=== PATIENT | female | born 1965 | race African-American/Black ===

== ENCOUNTER 2016-11-05 13:58 | Emergency (ER) | payer MEDICARE, MEDICAID ==
[~2016-11-05] VITALS: Ht 160 cm; Wt 81.6 kg
[~2016-11-05 13:58] MED LIST: BENA20TA2 PO; POTA20TA83 PO
[2016-11-05 14:55] LABS: BASOPHILS % (AUTO) 0.5 % (0.0-2.0); DIFF TOTAL % 100 %; EOSINOPHILS # (AUTO) 0.1 /CMM (0.0-0.7); EOSINOPHILS % (AUTO) 1.1 % (0.0-6.0); HEMATOCRIT 38 % (33-45); HEMOGLOBIN 12.3 g/dL (11.5-14.8); LYMPHOCYTES # (AUTO) 1.6 /CMM (0.8-4.8); MEAN CORPUSCULAR HEMOGLOBIN 27 PG (26.0-33.0); MEAN CORPUSCULAR HGB CONC 33 g/dl (31.0-36.0); MEAN CORPUSCULAR VOLUME 84 fL (82-100); MONOCYTES # (AUTO) 0.3 /CMM (0.1-1.30); MONOCYTES % (AUTO) 4.6 % (2.0-12.0); NEUTROPHILS # (AUTO) 4.7 /CMM (1.8-8.9); NEUTROPHILS % (AUTO) 69.8 % (43.0-81.0); PLATELET COUNT (AUTO) 267 /CMM (150-450); RED BLOOD CELL COUNT(AUTO) 4.51 MIL/uL (4.0-5.2); WHITE BLOOD COUNT (AUTO) 6.8 K/uL (4.3-11.0)
[2016-11-05] MEDS ORDERED: HYDROCODONE/APAP 5/325MG 1 EACH TABLET ONE (14:57)
[2016-11-05] MEDS ORDERED: HYDROCODONE/APAP 5/325MG 1 EACH TABLET PO ONE (15:00)
[2016-11-05 15:07] LABS: CALCIUM, SERUM 8.6 mg/dL (8.5-10.1); CREATININE 0.7 mg/dL (0.6-1.3); POTASSIUM 3.9 mmol/L (3.5-5.1)
[2016-11-05 15:12] LABS: ALBUMIN 3.9 g/dL (3.4-5.0); BILIRUBIN,TOTAL 0.3 mg/dL (0.2-1.0); TOTAL PROTEIN, SERUM 7.7 g/dL (6.4-8.2)
[2016-11-05 15:52] LABS: INR 1.05 (0.87-1.13)
[2016-11-05 16:43] VITALS: BP 142/92
== END 2016-11-05 16:50 | disposition home or self-care (01) ==
LOC: ER 15:10
DX: S70.11XA Contusion of right thigh, initial encounter (principal); M25.561 Pain in right knee; I51.7 Cardiomegaly; I10 Essential (primary) hypertension; M54.5 Low back pain; G89.29 Other chronic pain; E78.00 Pure hypercholesterolemia, unspecified; F31.9 Bipolar disorder, unspecified; F17.200 Nicotine dependence, unspecified, uncomplicated; Z90.89 Acquired absence of other organs; X58.XXXA Exposure to other specified factors, initial encounter; Y93.9 Activity, unspecified; Y92.9 Unspecified place or not applicable; Y99.9 Unspecified external cause status
CPT/HCPCS: 36415; 71010; 73564; 80053; 85025; 85730; 99285; A4606; Z7610

== ENCOUNTER 2017-03-31 10:17 | Emergency (ER) | payer MEDICAID, MEDICARE ==
[~2017-03-31] VITALS: Ht 165.1 cm; Wt 81.6 kg
--- NOTE | 2017-03-31 10:30 | NUR ---
PRESENTS SELF TO ED DT LEFT LOWER ABDOMINAL PAIN, 6/10, SHARP, RADIATING TO LEFT SIDE. DENIES NAUSEA AND VOMITTING, PATIENT IS AFEBRILE. VSS
[2017-03-31] MEDS ORDERED: ONDANSETRON HCL/PF 4 MG/2 ML VIAL ONE (10:57)
[2017-03-31] MEDS ORDERED: MORPHINE SULFATE INJ 4 MG/ML DISP.SYRIN ONE (10:57)
[2017-03-31] MEDS ORDERED: IV NS 0.9% 1,000 ML ONE (10:57)
[2017-03-31] MEDS ORDERED: IV SET PRIMARY 1 EA INFUS.SET MC ONE (10:57)
[2017-03-31] MEDS ORDERED: ONDANSETRON HCL/PF 4 MG/2 ML VIAL IVP ONE (11:00)
[2017-03-31] MEDS ORDERED: IV NS 0.9% 1,000 ML BAG IV ONE (11:00)
[2017-03-31] MEDS ORDERED: MORPHINE SULFATE INJ 2 MG/ML DISP.SYRIN IV ONE (11:00)
[2017-03-31 11:06] LABS: APPEARANCE,URINE Cloudy (CLEAR); BILIRUBIN,URINE SMALL (NEGATIVE); BLOOD, URINE Moderate Ery/uL (NEGATIVE); COLOR,URINE Dark (YELLOW); KETONES,URINE Negative (NEGATIVE); LEUKOCYTE ESTERASE ,URINE Negative (NEGATIVE); NITRITE, URINE Negative (NEGATIVE); PH,URINE 5.5 (5.0-8.0); PROTEIN,URINE 100 mg/dl (NEGATIVE); UGLUCOSE Negative (NEGATIVE); UROBILINOGEN,URINE 0.2 EU/dL (0.2)
[2017-03-31] MEDS ORDERED: ASPI81TA2 PO (11:06)
[2017-03-31 11:10] LABS: BASOPHILS % (AUTO) 0.5 % (0.0-2.0); EOSINOPHILS # (AUTO) 0.1 /CMM (0.0-0.7); EOSINOPHILS % (AUTO) 0.8 % (0.0-6.0); HEMATOCRIT 38 % (33-45); HEMOGLOBIN 12.3 g/dL (11.5-14.8); LYMPHOCYTES # (AUTO) 1.4 /CMM (0.8-4.8); LYMPHOCYTES % (AUTO) 18.1 % (20.0-44.0); MEAN CORPUSCULAR HEMOGLOBIN 28 PG (26.0-33.0); MEAN CORPUSCULAR HGB CONC 33 g/dl (31.0-36.0); MEAN CORPUSCULAR VOLUME 87 fL (82-100); MONOCYTES # (AUTO) 0.4 /CMM (0.1-1.30); MONOCYTES % (AUTO) 5.5 % (2.0-12.0); NEUTROPHILS % (AUTO) 75.1 % (43.0-81.0); PLATELET COUNT (AUTO) 257 /CMM (150-450); RDW COEFFICIENT OF VARIATION 17.4 (11.5-15.0); RED BLOOD CELL COUNT(AUTO) 4.35 MIL/uL (4.0-5.2); WHITE BLOOD COUNT (AUTO) 7.9 K/uL (4.3-11.0)
[2017-03-31 11:26] LABS: RBC,URINE 21-50 /HPF (0-2); SQUAMOUS EPITHELIAL CELL,UR Many /HPF (None Seen)
[2017-03-31 11:27] LABS: BACTERIA,URINE Moderate /HPF (None Seen)
[2017-03-31 12:01] LABS: ALBUMIN 3.7 g/dL (3.4-5.0); BILIRUBIN,DIRECT 0.1 mg/dL (0.0-0.2); BILIRUBIN,TOTAL 0.2 mg/dL (0.2-1.0); CALCIUM, SERUM 8.4 mg/dL (8.5-10.1); CREATININE 0.7 mg/dL (0.6-1.3); POTASSIUM 3.6 mmol/L (3.5-5.1); TOTAL PROTEIN, SERUM 7.1 g/dL (6.4-8.2)
[2017-03-31] MEDS ORDERED: CT SWABBABLE VALVE TRANS SET 1 EA INFUS.SET MC ONE (12:07)
[2017-03-31] MEDS ORDERED: IV NS 0.9% 250 ML IV ONE (12:07)
[2017-03-31] MEDS ORDERED: IOHEXOL-300 100 ML VIAL IV ONE (12:07)
--- NOTE | 2017-03-31 12:12 | NUR ---
PT WAS TAKEN TO CT
--- NOTE | 2017-03-31 12:27 | NUR ---
PT IS BACK FROM CT
--- NOTE | 2017-03-31 13:44 | NUR ---
Patient discharged to home in stable condition. Written and verbal after care instructions given. Patient verbalizes understanding of instruction.
[2017-03-31 13:45] VITALS: BP 157/98
== END 2017-03-31 13:46 | disposition home or self-care (01) ==
LOC: ER 10:19
DX: N20.0 Calculus of kidney (principal); E78.00 Pure hypercholesterolemia, unspecified; R19.7 Diarrhea, unspecified; F31.9 Bipolar disorder, unspecified; I10 Essential (primary) hypertension; G89.29 Other chronic pain; F20.9 Schizophrenia, unspecified; M54.5 Low back pain; F17.200 Nicotine dependence, unspecified, uncomplicated; Z90.89 Acquired absence of other organs; Z79.82 Long term (current) use of aspirin
CPT/HCPCS: 36415; 74160; 80048; 80076; 81001; 83690; 85025; 87086; 96361; 96374; 96375; 99285; A4606; J2270; J2405; J7030; J7050; Q9967; 81000-TC; Z7610

== ENCOUNTER 2017-06-01 22:50 | Emergency (ER) | payer OTHER ==
[~2017-06-01] VITALS: Ht 172.7 cm; Wt 79.8 kg
[~2017-06-01 22:50] MED LIST changes: +AMLO10TA2 PO; +ASPI81TA2 PO; +FURO-144 PO; -POTA20TA83 PO; +POTA8TAB8 PO; +TRAM50TA2 PO
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
[2017-06-01] MEDS ORDERED: ROCURONIUM BROMIDE 50 MG/5 ML IV ONE (22:52)
[2017-06-01] MEDS ORDERED: ETOMIDATE 2 MG/ML VIAL IV ONE ×2 (22:52→23:30)
[2017-06-01] MEDS ORDERED: NALOXONE PREFILLED SYRINGE 2 MG/2 ML SYRINGE ONE ×3 (22:55→22:58)
[2017-06-01] MEDS ORDERED: ROCURONIUM BROMIDE 50 MG/5 ML ONE (23:03)
--- NOTE | 2017-06-01 23:06 | NUR ---
PER DR FISCHER, PT INTUBATED 22 CM AT THE LIP 7.5 ET TUBE. RT AT BEDSIDE
[2017-06-01] MEDS ORDERED: PROPOFOL 100 ML IV ONE ×2 (23:07→23:30)
[2017-06-01 23:15] VITALS: BP 131/95
--- NOTE | 2017-06-01 23:15 | NUR ---
VENT SETTINGS: AC 18 TV 450 FI02 40% PEEP 5, 7.5 ET TUBE, 22CM AT THE LIP
--- NOTE | 2017-06-01 23:24 | NUR ---
16FR F/C PLACED, PT TOLERATED WELL. URINE COLLECTED. CALLED LAB FOR RELATIONSHIP MANAGEMENT LEAD.
--- NOTE | 2017-06-01 23:25 | NUR ---
LAB AT BEDSIDE FOR BLOOD/BLOOD CX DRAW
--- NOTE | 2017-06-01 23:26 | NUR ---
RADIOLOGY AT BEDSIDE FOR CXR
[2017-06-01] MEDS ORDERED: ROCURONIUM BROMIDE 100 MG/10 ML VIAL IV ONE (23:30)
[2017-06-01] MEDS ORDERED: NALOXONE HCL 0.4 MG/ML AMPUL IV ONE (23:30)
--- NOTE | 2017-06-01 23:49 | NUR ---
PT RETURNED FROM CT.
[2017-06-01 23:52] LABS: BASOPHILS % (AUTO) 0.7 % (0.0-2.0); EOSINOPHILS # (AUTO) 0.2 /CMM (0.0-0.7); EOSINOPHILS % (AUTO) 2.8 % (0.0-6.0); HEMATOCRIT 34 % (33-45); HEMOGLOBIN 10.9 g/dL (11.5-14.8); LYMPHOCYTES # (AUTO) 2.1 /CMM (0.8-4.8); LYMPHOCYTES % (AUTO) 33.9 % (20.0-44.0); MEAN CORPUSCULAR HEMOGLOBIN 29 PG (26.0-33.0); MEAN CORPUSCULAR HGB CONC 32 g/dl (31.0-36.0); MEAN CORPUSCULAR VOLUME 90 fL (82-100); MONOCYTES # (AUTO) 0.4 /CMM (0.1-1.30); MONOCYTES % (AUTO) 6.4 % (2.0-12.0); NEUTROPHILS # (AUTO) 3.5 /CMM (1.8-8.9); NEUTROPHILS % (AUTO) 56.2 % (43.0-81.0); PLATELET COUNT (AUTO) 261 /CMM (150-450); RDW COEFFICIENT OF VARIATION 15.7 (11.5-15.0); WHITE BLOOD COUNT (AUTO) 6.2 K/uL (4.3-11.0)
[2017-06-01 23:55] LABS: APPEARANCE,URINE SL CLOUDY (CLEAR); BILIRUBIN,URINE 1+ (NEGATIVE); BLOOD, URINE 1+ Ery/uL (NEGATIVE); COLOR,URINE YELLOW (YELLOW); KETONES,URINE TRACE (NEGATIVE); LEUKOCYTE ESTERASE ,URINE 1+ (NEGATIVE); NITRITE, URINE POSITIVE (NEGATIVE); PH,URINE 6.5 (5.0-8.0); PROTEIN,URINE 1+ mg/dl (NEGATIVE); UGLUCOSE NEGATIVE (NEGATIVE); UROBILINOGEN,URINE 0.2 EU/dL (0.2)
[2017-06-02] VITALS (26 sets, daily range): BP systolic 85–161; BP diastolic 49–109
[2017-06-02] LABS: PREGNANCY TEST URINE QUAL NEGATIVE (NEGATIVE)
[2017-06-02 00:02] LABS: SERUM AMMONIA 59 umol/L (11-32)
[2017-06-02 00:04] LABS: CALCIUM, SERUM 8.3 mg/dL (8.5-10.1); CARBON DIOXIDE 25 mmol/L (21-32); CHLORIDE 109 mmol/L (98-107); CREATININE 0.8 mg/dL (0.6-1.3); GLUCOSE 141 mg/dL (74-106); SODIUM SERUM 147 mmol/L (136-145); UREA NITROGEN, BLOOD 16 mg/dL (7-18)
[2017-06-02 00:06] LABS: BACTERIA,URINE 3+ /HPF (None Seen); CREATINE KINASE, TOTAL 105 U/L (26-192); MUCUS,URINE Moderate /LPF (None Seen); SQUAMOUS EPITHELIAL CELL,UR Moderate /HPF (None Seen); URINE AMORPHOUS URATE Few /HPF (None Seen); WBC,URINE 21-50 /HPF (0-3)
[2017-06-02 00:06] LABS: ABG BASE EXCESS -2.4 mmol/L; ABG OXYGEN SATURATION 84.9 % (92.0-98.5); ABG PCO2 48.7 mmHg (35.0-45.0); ABG PH 7.312 (7.350-7.450); ABG PO2 59.5 mmHg (75.0-100.0); COHb 2.5 % (0.5-1.5); MetHb 0.6 % (0.0-1.5); O2Hb 82.3 % (94.0-97.0); PEEP,BG 5 cm H2O; VT, ABG 450 mL
--- NOTE | 2017-06-02 00:10 | NUR ---
OGT PLACED PER MD ORDER, VERIFIED BY 2ND RN RILEY, NOTED GASTRIC CONTENT
--- NOTE | 2017-06-02 00:13 | NUR ---
PER RT, VENT AC CHANGED TO 20 PER MD ORDER
[2017-06-02 00:15] LABS: ALANINE AMINOTRANSFERASE 26 U/L (12-78); ALBUMIN 3.3 g/dL (3.4-5.0); ALCOHOL, BLOOD 176 mg/dL (0-0); ALKALINE PHOSPHATASE 61 U/L (46-116); ASPARTATE AMINOTRANSFERASE 20 U/L (15-37); BILIRUBIN,TOTAL 0.1 mg/dL (0.2-1.0); SALICYLATE 5.1 mg/dL (2.8-20.0); TOTAL PROTEIN, SERUM 6.9 g/dL (6.4-8.2)
[2017-06-02 00:16] LABS: ACETAMINOPHEN 0 ug/ml (10-30)
--- NOTE | 2017-06-02 00:16 | NUR ---
ASSIGNED ICU BED 251
[2017-06-02] MEDS ORDERED: IV NS 0.9% 1,000 ML BAG IV ONE ×2 (00:30→01:00)
[2017-06-02] MEDS ORDERED: Magnesium 1 GM/2 ML VIAL IV ONE (00:30)
[2017-06-02] MEDS ORDERED: CEFTRIAXONE 1GM BAG (ER ONLY) 1 GM/50 ML PIGGYBACK IV ONE (00:30)
[2017-06-02] MEDS ORDERED: Magnesium 1GM/D5W 100ML PREMIX 200 ML IV ONE (00:32)
[2017-06-02] MEDS ORDERED: CEFTRIAXONE 1GM BAG (ER ONLY) 50 ML IV ONE (00:32)
--- NOTE | 2017-06-02 00:41 | NUR ---
PER RT, ET TUBE READJUSTED TO 25CM AT THE LIP. RADIOLOGY AT BEDSIDE FOR CXR
[2017-06-02 00:52] LABS: TROPONIN I < 0.017 ng/mL (0.00-0.056)
--- NOTE | 2017-06-02 01:03 | NUR ---
REPORT GIVEN TO SIMRAN BLEVINS FOR ICU BED 251 FOR SHRUTI
[2017-06-02 01:08] LABS: INR 0.97 (0.87-1.13); PROTHROMBIN TIME 10.4 SECS (9.5-12.7)
--- NOTE | 2017-06-02 01:48 | NUR ---
PT TRASNFERED PER ACLS PROTOCOL TO ICU 251
[2017-06-02] MEDS ORDERED: Z GUARD REMEDY 2 OZ OINT TP PRN (02:00)
[2017-06-02] MEDS ORDERED: ENOXAPARIN SODIUM 40 MG/0.4 ML DISP.SYRIN SQ SCH ×2 (02:00→21:00)
[2017-06-02] MEDS ORDERED: ONDANSETRON HCL/PF 4 MG/2 ML VIAL IVP PRN (02:00)
[2017-06-02] MEDS ORDERED: ACETAMINOPHEN 650 MG/SUPP.RECT RC PRN (02:00)
[2017-06-02] MEDS ORDERED: CEFTRIAXONE 2 G in IV D5W 100 ML IV SCH (02:00)
[2017-06-02] MEDS: POTASSIUM CL. PREMIX PERIPHER. 50 ML IV SCH ×4 (02:10→04:53)
[2017-06-02] MEDS ORDERED: ENOXAPARIN SODIUM 40 MG/0.4 ML DISP.SYRIN SQ ONE (02:16)
[2017-06-02] MEDS ORDERED: PROPOFOL 100 ML IV ONE ×2 (02:16→06:02)
[2017-06-02] MEDS: IV D5/0.45 NACL 1,000 ML IV PRN ×2 (02:19→09:19)
--- NOTE | 2017-06-02 03:18 | NUR ---
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 RECEIVED THE PT FROM ER VIA [facility]. ORALLY INTUBATED. SEDATED WITH DIPRIVAN. ETT 7.5CM,AC 20, LIP 25,TV 450, FIO2 40%, PEEP 5. SAT 98%. NO ACUTE DISTRESS NOTED. COTTON BALL MACHINE TENDER SHOWING NSR. IV LT HAND 20G, EJ 20G. IVF NS 1L BOLUS RUNNING, BHAVIK SOFT WRIST RESTRAINT CHECKED AND RELEASED. NO INJURY OR REDNESS NOTED.FC PATENT. OGT INTACT. WILL CONTINUE TO MONITOR VITALS.
[2017-06-02] MEDS: PROPOFOL 100 ML IV PRN ×2 (03:23→06:20)
[2017-06-02 04:46] LABS: BASOPHILS % (AUTO) 0.3 % (0.0-2.0); EOSINOPHILS # (AUTO) 0.1 /CMM (0.0-0.7); EOSINOPHILS % (AUTO) 1.1 % (0.0-6.0); HEMATOCRIT 31 % (33-45); HEMOGLOBIN 10.2 g/dL (11.5-14.8); LYMPHOCYTES # (AUTO) 1.7 /CMM (0.8-4.8); MEAN CORPUSCULAR HEMOGLOBIN 30 PG (26.0-33.0); MEAN CORPUSCULAR HGB CONC 33 g/dl (31.0-36.0); MEAN CORPUSCULAR VOLUME 90 fL (82-100); MONOCYTES # (AUTO) 0.3 /CMM (0.1-1.30); NEUTROPHILS # (AUTO) 4.6 /CMM (1.8-8.9); NEUTROPHILS % (AUTO) 68.6 % (43.0-81.0); PLATELET COUNT (AUTO) 236 /CMM (150-450); RDW COEFFICIENT OF VARIATION 15.9 (11.5-15.0); RED BLOOD CELL COUNT(AUTO) 3.47 MIL/uL (4.0-5.2); WHITE BLOOD COUNT (AUTO) 6.7 K/uL (4.3-11.0)
[2017-06-02 04:58] LABS: CALCIUM, SERUM 7.8 mg/dL (8.5-10.1); CREATININE 0.7 mg/dL (0.6-1.3); MAGNESIUM 2.2 mg/dL (1.8-2.4); PHOSPHORUS 3.2 mg/dL (2.5-4.9); POTASSIUM 3.7 mmol/L (3.5-5.1)
--- NOTE | 2017-06-02 05:11 | NUR ---
HAT LINER. AM CARE. ORAL CARE. BED BATH GIVEN. LINEN CHANGED. REMAINING SAME VENT SETTING TOLERATED WELL. SAT 98%. NO ACUTE DISTRESS NOTED. INSTALLATION MANAGER SHOWING NSR. IV RLT HAND 20G, LT EJ 20G. IVF D5 1/2NS 75ML/H, DIPRIVAN 50MCG/KG/MIN. HOB ELEVATED. NPO. OGT INTACT. CLAMPED. FC PATENT. BHAVIK SOFT WRIST RESTRAINT CHECKED AND RELEASED. NO INJURY OR REDNESS NOTED. HOB EKEVATED, TURN AND REPOSITION Q2H. WILL CONTINUE TO MONITOR VITALS.
--- NOTE | 2017-06-02 07:10 | NUR ---
ICU INITIAL NOTE RECEIVED PT A/O X4, ABLE TO MAKE NEEDS KNOWN, ABLE TO FOLLOW COMMANDS, PT IS ON MECH VENT ETT 7.5 @25 LIPLINE, AC 20 TV 450 FIO2 40% PEEP 5,SATING WELL, BREATHING IS UNLABORED AND EVEN, OGT, CLAMPED, FLUSHING WELL, PT IS ON BEDSIDE MONITOR SHOWING SR @ 85 BPM, NO C/O OF CHEST PAIN OR DISCOMFORT AT THIS TIME, PT HAS LAC #20G,SL, C/D/I/PATENT, FLUSHING WELL,LEJ #20G,RUNNING D5 1/2 NS@ 75ML/HR, DIPRIVAN @ 50 MCG/MIN , C/D/I/ PATENT, FLUSHING WELL, NO S/S OF INFECTION/ INFILTRATION NOTED AT THIS TIME, PT IS NOTED WITH BILATERAL WRIST RESTRAINTS, SKIN CHECK COMPLETED AND RELEASED, PT HAS F/C INTACT/PATENT, ALL NEEDS MET AT THIS TIME, ALL SAFETY MEASURES IN PLACE AT ALL TIMES, CALL LIGHT WITHIN EASY REACH, WILL MONITOR PT CLOSELY FOR CHANGES
[2017-06-02 07:57] LABS: ABG BASE EXCESS -4.6 mmol/L; ABG OXYGEN SATURATION 97.2 % (92.0-98.5); ABG PCO2 34.7 mmHg (35.0-45.0); ABG PH 7.376 (7.350-7.450); ABG PO2 108.5 mmHg (75.0-100.0); AaDO2 136.8 mmHg; COHb 0.4 % (0.5-1.5); MetHb 0.7 % (0.0-1.5); O2Hb 96.1 % (94.0-97.0); PEEP,BG 5 cm H2O; SITE, ABG Right Radial; VENT MODE, BG AC 20 450 40% +5; VT, ABG 450 mL
[2017-06-02] MEDS ORDERED: DC PROPOFOL WHEN EXTUBATED XX PRN (08:00)
--- NOTE | 2017-06-02 09:00 | NUR ---
SEDATION VACATION DIPRIVAN WAS TURNED OFF, PT IS ABLE TO FOLLOW COMMANDS, ABLE TO MAKE ALL EXTREMITIES, ABLE TO MAKE NEEDS KNOWN, DIPRIVAN STILL ON HOLD, PT IS BEING WEANED. WILL MONITOR CLOSELY
--- NOTE | 2017-06-02 10:00 | NUR ---
ICU NOTE DR. VALENTINO ORDERED EXTUBATION, PT WAS EXTUBATED, PLACED ON 2L NC, TOLERATING WELL, ABLE TO SPEAK, EAT ICE CHIPS, WILL MONITOR CLOSELY
--- NOTE | 2017-06-02 11:00 | NUR ---
ICU NOTE PT REFUSING TO USE BEDSIDE COMMODE, PT WAS EDUCATED WITH THE RISK OF WALKING TO THE RESTROOM, PT STILL REFUSES TO USE BEDSIDE COMMODE AND WANTS TO USE RESTROOM. Addendum: 06/02/17 at 1259 by LYNN ANDRADE RN ADDED: PT VERBALIZES UNDERSTANDING AND RISK
--- NOTE | 2017-06-02 11:21 | NUR ---
RT NOTE PT EXTUBATED PER MD ORDER. PT AWAKE AND ALERT. AMBU BAG AT BED SIDE. PT PLACED ON NC AT 2L. SPO2 99%. PELEG AT BED SIDE. NO DISTRESS NOTED. WILL CONTINUE TO MONITOR. Addendum: 06/02/17 at 1123 by ROSEANN CHAPMAN RT Amended: Links added.
[2017-06-02] MEDS ORDERED: ACETAMINOPHEN 325 MG TABLET PO PRN (11:30)
[2017-06-02] MEDS ORDERED: NICOTINE PATCH (14MG) 14 MG PATCH.TD24 TD SCH (12:00)
--- NOTE | 2017-06-02 16:00 | NUR ---
ICU NOTE PT REQUESTED REJ TO BE REMOVED, PAINFUL FOR THE PT, INFORMED HER WE WOULD NEED A NEW IV, PT REFUSED X3, EXPLAINED RISKS AND BENEFITS, PT STILL REFUSED
[2017-06-02] MEDS ORDERED: NIFE60TA69 PO (20:56)
== END 2017-06-02 01:50 | disposition other institution (70) ==
LOC: ER 22:51 → MERGE 22:51 → UNDOADMIN 06-02 00:49 → ICU 06-02 00:49
DX: J96.90 Respiratory failure, unspecified, unspecified whether with hypoxia or hypercapnia (principal); R41.82 Altered mental status, unspecified; F19.10 Other psychoactive substance abuse, uncomplicated; E86.0 Dehydration; D64.9 Anemia, unspecified; Z88.6 Allergy status to analgesic agent; Z88.8 Allergy status to other drugs, medicaments and biological substances; Z91.040 Latex allergy status
CPT/HCPCS: 31720; 36415 ×2; 36600 ×3; 51702; 70450; 71010 ×2; 80048 ×2; 80076; 80305; 80329; 81001; 82140; 82550; 82803; 82962; 83735; 84100; 84484 ×3; 84703; 85025 ×2; 85730; 87081; 87086; 93005; 93307; 94002; 94799; 99285; A4606 ×2; G0480 ×2; J0696 ×3; J1650; J2310 ×3; J3475; J3490 ×7; J7030 ×2; J7060 ×2; 81000-TC; Z7610

== ENCOUNTER 2017-06-02 19:11 | Inpatient (IN) | payer MEDICARE, MEDICAID ==
[~2017-06-02] VITALS: Ht 142.2 cm; Wt 100.7 kg
[2017-06-02 20:00] VITALS: BP_SYST 140; BP_SYST 160; BP_DIAS 100; BP_DIAS 140
--- NOTE | 2017-06-02 20:00 | NUR ---
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 PT ADMITTED IN THE ICU ON 06/02/17T 0140. ROOM 251. RECEIVED THE PT FROM ER VIA [facility]. ORALLY INTUBATED, SEDATED WITH DIPRIVAN. IV WSA RT [id number] LT HAND 20G. IVF NS BOLUS RUNNING, ETT 7.7, SETTINGS LIP 25CMS, AC 20, TV 450,FIO2 40%, PEEP 5. SAT 98%. NO ACCUTE DISTRESS NOTED. FLATWORK IRONER SHOWING NSR. FC PATENT. PT EXTUBATED 06/02/17. AT 1000. THIS PT ADMITTED HER SISTER {CHANDA AKBAR}SAME NAME AND MEDICAL RECORD NUMBER. I REPORTED DR HAL WangBEGINNING MY SHIFT 06/02/17 AT 1900. ADMITTING DISCHARGED HER SISTER NAME AND ADMITTED LIKE NEW PT . ,
[2017-06-02] MEDS ORDERED: NIFEdipine XL 60 MG TAB PO STA (20:53)
[2017-06-02] MEDS ORDERED: NIFE60TA69 PO (20:56)
[2017-06-02 21:00] VITALS: BP 144/120
[2017-06-02] MEDS ORDERED: NIFEdipine XL (30MG) 30 MG TAB PO ONE (21:11)
[2017-06-02 22:00] VITALS: BP 145/145
--- NOTE | 2017-06-02 22:10 | NUR ---
SUPERVISOR [employer]. RECEIVED THE PT AWAKE, ALERT, FOLLOW COMMANDS. SNOWBOARDER SHOWING NSR. IV LT HAND 20G. PT ON ROOM AIR. SAT 98%. NO ACUTE DISTRESS NOTED. WILL CONTINUE TO MONITOR VITALS.
--- NOTE | 2017-06-02 23:00 | NUR ---
MANAGER INTERNET. DR HONG AT BED SIDE, DISCHARGED THE PT. PT IS STABLE.
== END 2017-06-03 02:00 | disposition home or self-care (01) | DRG 917 ==
LOC: ICU 19:11
PROVIDERS: ADMIT Nurse Practitioner Acute Care; ATTEND Nurse Practitioner Acute Care
DX: T50.901A Poisoning by unspecified drugs, medicaments and biological substances, accidental (unintentional), initial encounter (principal); J96.00 Acute respiratory failure, unspecified whether with hypoxia or hypercapnia; N39.0 Urinary tract infection, site not specified; Y92.009 Unspecified place in unspecified non-institutional (private) residence as the place of occurrence of the external cause; F19.90 Other psychoactive substance use, unspecified, uncomplicated; E66.9 Obesity, unspecified; I10 Essential (primary) hypertension; N20.0 Calculus of kidney

== ENCOUNTER 2017-07-01 14:47 | Emergency (ER) | payer MEDICARE, MEDICAID ==
[~2017-07-01] VITALS: Ht 160 cm; Wt 79.4 kg
[~2017-07-01 14:47] MED LIST changes: -ASPI81TA2 PO; -BENA20TA2 PO; +NIFE60TA69 PO
--- NOTE | 2017-07-01 15:15 | NUR ---
RLQ ABD PAIN SINCE THIS AM
--- NOTE | 2017-07-01 16:00 | NUR ---
LAC #18 IV ACCESS. BLOOD SAMPLE COLLECTED SENT TO LAB. URINE SAMPLE COLLECTED
[2017-07-01 16:17] LABS: BASOPHILS % (AUTO) 0.1 % (0.0-2.0); EOSINOPHILS % (AUTO) 0.4 % (0.0-6.0); HEMATOCRIT 40 % (33-45); HEMOGLOBIN 12.9 g/dL (11.5-14.8); LYMPHOCYTES % (AUTO) 9.5 % (20.0-44.0); MEAN CORPUSCULAR HEMOGLOBIN 28 PG (26.0-33.0); MEAN CORPUSCULAR HGB CONC 32 g/dl (31.0-36.0); MEAN CORPUSCULAR VOLUME 86 fL (82-100); MONOCYTES # (AUTO) 0.2 /CMM (0.1-1.30); MONOCYTES % (AUTO) 2.4 % (2.0-12.0); NEUTROPHILS # (AUTO) 9.2 /CMM (1.8-8.9); NEUTROPHILS % (AUTO) 87.6 % (43.0-81.0); PLATELET COUNT (AUTO) 271 /CMM (150-450); RDW COEFFICIENT OF VARIATION 15.5 (11.5-15.0); RED BLOOD CELL COUNT(AUTO) 4.65 MIL/uL (4.0-5.2); WHITE BLOOD COUNT (AUTO) 10.4 K/uL (4.3-11.0)
[2017-07-01 16:19] LABS: APPEARANCE,URINE CLEAR (CLEAR); BILIRUBIN,URINE NEGATIVE (NEGATIVE); BLOOD, URINE 3+ Ery/uL (NEGATIVE); COLOR,URINE YELLOW (YELLOW); KETONES,URINE NEGATIVE (NEGATIVE); LEUKOCYTE ESTERASE ,URINE NEGATIVE (NEGATIVE); NITRITE, URINE NEGATIVE (NEGATIVE); PH,URINE 7.5 (5.0-8.0); PROTEIN,URINE TRACE mg/dl (NEGATIVE); UGLUCOSE NEGATIVE (NEGATIVE); UROBILINOGEN,URINE 0.2 EU/dL (0.2)
[2017-07-01 16:37] LABS: RBC,URINE 21-50 /HPF (0-2)
[2017-07-01 16:38] LABS: BACTERIA,URINE Rare /HPF (None Seen); SQUAMOUS EPITHELIAL CELL,UR 0-2 /HPF (None Seen)
[2017-07-01 16:52] LABS: CALCIUM, SERUM 8.9 mg/dL (8.5-10.1); CREATININE 0.6 mg/dL (0.6-1.3); POTASSIUM 3.8 mmol/L (3.5-5.1)
--- NOTE | 2017-07-01 17:02 | NUR ---
PT TAKENT TO CT
[2017-07-01 17:06] LABS: BILIRUBIN,TOTAL 0.2 mg/dL (0.2-1.0); TOTAL PROTEIN, SERUM 8.1 g/dL (6.4-8.2)
--- NOTE | 2017-07-01 18:32 | NUR ---
IV removed. Catheter intact and site benign. Pressure and 4x4 applied to site. No bleeding noted.
--- NOTE | 2017-07-01 18:32 | NUR ---
IV removed. Catheter intact and site benign. Pressure and 4x4 applied to site. No bleeding noted.
--- NOTE | 2017-07-01 18:32 | NUR ---
Patient discharged to home in stable condition. Written and verbal after care instructions given. Patient verbalizes understanding of instruction.
--- NOTE | 2017-07-01 18:32 | NUR ---
Patient discharged to home in stable condition. Written and verbal after care instructions given. Patient verbalizes understanding of instruction.
[2017-07-01 18:33] VITALS: BP 163/104
== END 2017-07-01 18:33 | disposition home or self-care (01) ==
LOC: ER 14:50
DX: K85.90 Acute pancreatitis without necrosis or infection, unspecified (principal); N20.0 Calculus of kidney; F17.200 Nicotine dependence, unspecified, uncomplicated; D25.9 Leiomyoma of uterus, unspecified; E78.00 Pure hypercholesterolemia, unspecified; G89.29 Other chronic pain; I10 Essential (primary) hypertension; K57.30 Diverticulosis of large intestine without perforation or abscess without bleeding; K59.00 Constipation, unspecified; K76.0 Fatty (change of) liver, not elsewhere classified; M51.37 Other intervertebral disc degeneration, lumbosacral region; Z87.891 Personal history of nicotine dependence
CPT/HCPCS: 36415; 74170-TC; 80048-TC; 80076-TC; 81000-TC; 83690-TC; 85025-TC; 87086-TC; A4606; J2270; J2405; J7030; J7050; Q9967; Z7610

== ENCOUNTER 2018-07-22 20:21 | Emergency (ER) | payer MEDICARE, MEDICAID ==
[~2018-07-22] VITALS: Ht 160 cm; Wt 83.9 kg
[~2018-07-22 20:21] MED LIST changes: -AMLO10TA2 PO; +AMLO10TA6 PO
[2018-07-22 20:46] VITALS: BP 156/103
--- NOTE | 2018-07-22 22:10 | NUR ---
PER ADMITTING PT LEFT.
== END 2018-07-22 22:13 | disposition left against medical advice (07) ==
LOC: ER 20:26
DX: I10 Essential (primary) hypertension (principal); Z53.21 Procedure and treatment not carried out due to patient leaving prior to being seen by health care provider; F31.9 Bipolar disorder, unspecified; G89.29 Other chronic pain; M54.5 Low back pain; E78.00 Pure hypercholesterolemia, unspecified; Z98.890 Other specified postprocedural states; Z90.89 Acquired absence of other organs
CPT/HCPCS: A4606; Z7610

== ENCOUNTER 2019-02-03 12:51 | Emergency (ER) | payer MEDICARE, MEDICAID ==
[~2019-02-03] VITALS: Ht 160 cm; Wt 74.8 kg
[~2019-02-03 12:51] MED LIST changes: -AMLO10TA6 PO; +AMLO10TA7 PO
--- NOTE | 2019-02-03 13:15 | NUR ---
BIB SPOUSE C/O LT SIDE "SHARP" PAIN, NON RADIATING, ON & OFF X 3 DAYS W/SOB & NAUSEA. ALSO C/O RT UPPER LIP & RT 5TH FINGER NUMBNESS X 3 MOS. TO ER BED 7, HOOKED TO MONITOR, CHANGED TO GOWN, PROVIDED W WARM BLANKET, AWAITING MD ROSENTHAL.
[2019-02-03 13:37] LABS: BASOPHILS # (AUTO) 0.1 /CMM (0.0-0.2); EOSINOPHILS % (AUTO) 1.2 % (0.0-6.0); HEMATOCRIT 42 % (33-45); HEMOGLOBIN 13.9 g/dL (11.5-14.8); LYMPHOCYTES # (AUTO) 1.9 /CMM (0.8-4.8); LYMPHOCYTES % (AUTO) 24.5 % (20.0-44.0); MEAN CORPUSCULAR HGB CONC 33 g/dl (31.0-36.0); MEAN CORPUSCULAR VOLUME 91 fL (82-100); MONOCYTES # (AUTO) 0.4 /CMM (0.1-1.30); MONOCYTES % (AUTO) 5.6 % (2.0-12.0); NEUTROPHILS # (AUTO) 5.1 /CMM (1.8-8.9); NEUTROPHILS % (AUTO) 67.7 % (43.0-81.0); PLATELET COUNT (AUTO) 305 /CMM (150-450); RED BLOOD CELL COUNT(AUTO) 4.59 MIL/uL (4.0-5.2); WHITE BLOOD COUNT (AUTO) 7.6 K/uL (4.3-11.0)
[2019-02-03 13:46] LABS: CALCIUM, SERUM 8.9 mg/dL (8.5-10.1); CARBON DIOXIDE 29 mmol/L (21-32); CHLORIDE 106 mmol/L (98-107); CREATININE 0.6 mg/dL (0.6-1.3); GLUCOSE 92 mg/dL (74-106); POTASSIUM 3.9 mmol/L (3.5-5.1); SODIUM SERUM 145 mmol/L (136-145); UREA NITROGEN, BLOOD 22 mg/dL (7-18)
--- NOTE | 2019-02-03 14:32 | NUR ---
PT. VERBALIZED UNDERSTANDING OF AFTERCARE INSTRUCTIONS.Patient discharged to home in stable condition. Written and verbal after care instructions given. Patient verbalizes understanding of instruction.
[2019-02-03 14:43] VITALS: BP 147/94
== END 2019-02-03 14:43 | disposition home or self-care (01) ==
LOC: ER 12:51
DX: R07.89 Other chest pain (principal); I10 Essential (primary) hypertension; G89.29 Other chronic pain; M54.5 Low back pain; E78.00 Pure hypercholesterolemia, unspecified; F31.9 Bipolar disorder, unspecified; F10.10 Alcohol abuse, uncomplicated; F17.200 Nicotine dependence, unspecified, uncomplicated; Y90.9 Presence of alcohol in blood, level not specified; Z88.6 Allergy status to analgesic agent; Z91.040 Latex allergy status; Z88.5 Allergy status to narcotic agent; Z86.73 Personal history of transient ischemic attack (TIA), and cerebral infarction without residual deficits
CPT/HCPCS: 36415; 71045-TC; 80048-TC; 84484-TC; 85025-TC

== ENCOUNTER 2019-04-13 23:26 | Emergency (ER) | payer MEDICARE, MEDICAID ==
[~2019-04-13] VITALS: Ht 162.6 cm; Wt 83.5 kg
[2019-04-14] MEDS ORDERED: ONDANSETRON HCL/PF 4 MG/2 ML VIAL ONE (00:51)
[2019-04-14] MEDS ORDERED: PANTOPRAZOLE 40 MG VIAL ONE (00:51)
[2019-04-14] MEDS ORDERED: IV NS 0.9% 1,000 ML BAG IV ONE (01:00)
[2019-04-14] MEDS ORDERED: ONDANSETRON HCL/PF 4 MG/2 ML VIAL IVP ONE (01:00)
[2019-04-14] MEDS ORDERED: PANTOPRAZOLE 40 MG VIAL IV ONE (01:00)
--- NOTE | 2019-04-14 01:18 | NUR ---
PT STATING "HAVING ABD PAIN AFTER WORK TODAY, FEELS LIKE GALLSTONES I HAD A WHILE AGO" -SOB NOTED. AOX4. AMBULATORY. VSS.
[2019-04-14 01:21] LABS: BASOPHILS # (AUTO) 0.1 /CMM (0.0-0.2); EOSINOPHILS % (AUTO) 2.1 % (0.0-6.0); HEMATOCRIT 41 % (33-45); HEMOGLOBIN 14.9 g/dL (11.5-14.8); LYMPHOCYTES # (AUTO) 2.2 /CMM (0.8-4.8); LYMPHOCYTES % (AUTO) 41.8 % (20.0-44.0); MEAN CORPUSCULAR HGB CONC 36 g/dl (31.0-36.0); MEAN CORPUSCULAR VOLUME 90 fL (82-100); MONOCYTES # (AUTO) 0.3 /CMM (0.1-1.30); MONOCYTES % (AUTO) 5.7 % (2.0-12.0); NEUTROPHILS # (AUTO) 2.7 /CMM (1.8-8.9); NEUTROPHILS % (AUTO) 49.4 % (43.0-81.0); PLATELET COUNT (AUTO) 269 /CMM (150-450); RED BLOOD CELL COUNT(AUTO) 4.59 MIL/uL (4.0-5.2); WHITE BLOOD COUNT (AUTO) 5.4 K/uL (4.3-11.0)
[2019-04-14 01:40] LABS: APPEARANCE,URINE Clear (CLEAR); BILIRUBIN,URINE Negative (NEGATIVE); BLOOD, URINE Trace-intact Ery/uL (NEGATIVE); COLOR,URINE Yellow (YELLOW); KETONES,URINE Negative (NEGATIVE); LEUKOCYTE ESTERASE ,URINE Negative (NEGATIVE); NITRITE, URINE Negative (NEGATIVE); PH,URINE 7.5 (5.0-8.0); PROTEIN,URINE Negative (NEGATIVE); UGLUCOSE Negative (NEGATIVE); UROBILINOGEN,URINE 0.2 EU/dL (0.2)
[2019-04-14 01:56] LABS: CALCIUM, SERUM 8.9 mg/dL (8.5-10.1); CREATININE 0.6 mg/dL (0.6-1.3); POTASSIUM 3.4 mmol/L (3.5-5.1)
[2019-04-14 02:01] LABS: BACTERIA,URINE None seen /HPF (None Seen); SQUAMOUS EPITHELIAL CELL,UR Moderate /HPF (None Seen); WBC,URINE 0-2 /HPF (0-3)
[2019-04-14 02:02] LABS: ALBUMIN 3.8 g/dL (3.4-5.0); BILIRUBIN,TOTAL 0.2 mg/dL (0.2-1.0); TOTAL PROTEIN, SERUM 7.5 g/dL (6.4-8.2)
[2019-04-14 02:42] LABS: CHOLESTEROL 301 mg/dL (<200); HDL CHOLESTEROL 52 mg/dL (40-60); LDL 120 mg/dL (0-99); TRIGLYCERIDES 2072 mg/dL (30-150)
[2019-04-14 03:44] VITALS: BP 144/89
== END 2019-04-14 03:45 | disposition home or self-care (01) ==
LOC: ER 23:33
DX: K85.90 Acute pancreatitis without necrosis or infection, unspecified (principal); E78.5 Hyperlipidemia, unspecified; F10.10 Alcohol abuse, uncomplicated; I10 Essential (primary) hypertension; G89.29 Other chronic pain; M54.5 Low back pain; E78.00 Pure hypercholesterolemia, unspecified; F31.9 Bipolar disorder, unspecified; F17.200 Nicotine dependence, unspecified, uncomplicated; Y90.3 Blood alcohol level of 60-79 mg/100 ml; Z88.1 Allergy status to other antibiotic agents; Z90.89 Acquired absence of other organs; Z88.6 Allergy status to analgesic agent; Z91.040 Latex allergy status
CPT/HCPCS: 36415; 71045; 74176; 80048; 80061; 80076; 80307; 81001; 83690; 85025; 85730; 93005; 96374; 96375; 99284; C9113; J2405; J7030; 81000-TC; G0480

== ENCOUNTER 2019-04-15 07:21 | Emergency (ER) | payer MEDICARE, MEDICAID ==
[~2019-04-15] VITALS: Ht 160 cm; Wt 75.7 kg
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
--- NOTE | 2019-04-15 07:42 | NUR ---
SEEN AND EXAMINED BY
[2019-04-15] MEDS ORDERED: ACETAMINOPHEN ES 500 MG TABLET ONE (07:44)
--- NOTE | 2019-04-15 07:50 | NUR ---
IV LINE ESTABLISHED, BLOOD DRAWNED AND SENT TO LAB.
[2019-04-15 07:54] LABS: BASOPHILS % (AUTO) 0.4 % (0.0-2.0); EOSINOPHILS % (AUTO) 0.9 % (0.0-6.0); HEMATOCRIT 42 % (33-45); HEMOGLOBIN 13.9 g/dL (11.5-14.8); LYMPHOCYTES # (AUTO) 1.2 /CMM (0.8-4.8); LYMPHOCYTES % (AUTO) 10.2 % (20.0-44.0); MEAN CORPUSCULAR HGB CONC 33 g/dl (31.0-36.0); MEAN CORPUSCULAR VOLUME 90 fL (82-100); MONOCYTES # (AUTO) 0.6 /CMM (0.1-1.30); MONOCYTES % (AUTO) 5.5 % (2.0-12.0); NEUTROPHILS # (AUTO) 9.7 /CMM (1.8-8.9); PLATELET COUNT (AUTO) 239 /CMM (150-450); RED BLOOD CELL COUNT(AUTO) 4.64 MIL/uL (4.0-5.2); WHITE BLOOD COUNT (AUTO) 11.7 K/uL (4.3-11.0)
[2019-04-15 08:00] LABS: CALCIUM, SERUM 8.7 mg/dL (8.5-10.1); CREATININE 0.7 mg/dL (0.6-1.3); POTASSIUM 3.4 mmol/L (3.5-5.1)
[2019-04-15] MEDS ORDERED: IV NS 0.9% 1,000 ML BAG IV ONE (08:00)
[2019-04-15] MEDS ORDERED: ACETAMINOPHEN 325 MG TABLET PO ONE (08:00)
[2019-04-15 08:06] LABS: ALBUMIN 3.6 g/dL (3.4-5.0); BILIRUBIN,TOTAL 0.2 mg/dL (0.2-1.0); TOTAL PROTEIN, SERUM 7.3 g/dL (6.4-8.2)
[2019-04-15 08:43] VITALS: BP 142/82
--- NOTE | 2019-04-15 08:43 | NUR ---
IV removed. Catheter intact and site benign. Pressure and 4x4 applied to site. No bleeding noted. Patient discharged to home in stable condition. Written and verbal after care instructions given. Patient verbalizes understanding of instruction.
== END 2019-04-15 08:45 | disposition home or self-care (01) ==
LOC: ER 07:27
DX: K85.90 Acute pancreatitis without necrosis or infection, unspecified (principal); I10 Essential (primary) hypertension; G89.29 Other chronic pain; E78.00 Pure hypercholesterolemia, unspecified; F31.9 Bipolar disorder, unspecified; F17.200 Nicotine dependence, unspecified, uncomplicated; Z90.89 Acquired absence of other organs; Z98.890 Other specified postprocedural states; Z88.6 Allergy status to analgesic agent; Z88.8 Allergy status to other drugs, medicaments and biological substances; Z91.040 Latex allergy status; Z79.899 Other long term (current) drug therapy
CPT/HCPCS: 36415; 80048; 80076; 83690; 85025; 99283; J7030

== ENCOUNTER 2019-07-20 00:10 | Emergency (ER) | payer MEDICARE, MEDICAID ==
[~2019-07-20] VITALS: Ht 160 cm; Wt 72.6 kg
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
[2019-07-20] MEDS ORDERED: LIDOCAINE 1%-EPI 1:100,000 20 ML VIAL ONE (00:21)
[2019-07-20] MEDS ORDERED: TDAP [DIPH/PERTUSSIS/TET] 0.5 ML VIAL IM ONE (00:21)
[2019-07-20] MEDS: TDAP [DIPH/PERTUSSIS/TET] 0.5 ML VIAL IM ONE ×2 (00:31→01:22)
--- NOTE | 2019-07-20 01:26 | NUR ---
DPatient discharged to home in stable condition. Written and verbal after care instructions given. Patient verbalizes understanding of instruction.
[2019-07-20 01:28] VITALS: BP 145/101
== END 2019-07-20 01:29 | disposition home or self-care (01) ==
LOC: ER 00:10
DX: S41.112A Laceration without foreign body of left upper arm, initial encounter (principal); I10 Essential (primary) hypertension; G89.29 Other chronic pain; E78.00 Pure hypercholesterolemia, unspecified; F17.200 Nicotine dependence, unspecified, uncomplicated; F31.9 Bipolar disorder, unspecified; Z90.89 Acquired absence of other organs; Z98.890 Other specified postprocedural states; Z79.899 Other long term (current) drug therapy; X99.8XXA Assault by other sharp object, initial encounter; Y93.89 Activity, other specified; Y92.89 Other specified places as the place of occurrence of the external cause; Y99.8 Other external cause status
CPT/HCPCS: 12002; 99283; A6403; J3490; 90715

== ENCOUNTER 2019-08-14 17:20 | Emergency (ER) | payer MEDICARE, MEDICAID ==
[~2019-08-14] VITALS: Ht 160 cm; Wt 72.6 kg
[2019-08-14 17:28] VITALS: BP 145/80
--- NOTE | 2019-08-14 17:56 | NUR ---
Patient discharged to home in stable condition. Written and verbal after care instructions given. Patient verbalizes understanding of instruction.
== END 2019-08-14 17:57 | disposition home or self-care (01) ==
LOC: ER 17:21
DX: S41.112D Laceration without foreign body of left upper arm, subsequent encounter (principal); I10 Essential (primary) hypertension; G89.29 Other chronic pain; M54.5 Low back pain; E78.00 Pure hypercholesterolemia, unspecified; F31.9 Bipolar disorder, unspecified; F10.10 Alcohol abuse, uncomplicated; F17.200 Nicotine dependence, unspecified, uncomplicated; Y90.9 Presence of alcohol in blood, level not specified; Z79.899 Other long term (current) drug therapy; Z90.89 Acquired absence of other organs; X58.XXXD Exposure to other specified factors, subsequent encounter

== ENCOUNTER 2019-11-29 04:31 | Emergency (ER) | payer MEDICARE, OTHER ==
[~2019-11-29] VITALS: Ht 160 cm; Wt 74.8 kg
[~2019-11-29 04:31] MED LIST changes: +NIFE-34 PO; -NIFE60TA69 PO
[2019-11-29] MEDS ORDERED: KETOROLAC TROMETHAMINE 15 MG/ML VIAL ONE (04:55)
--- NOTE | 2019-11-29 04:58 | NUR ---
PT AAOX4. BIBS. C/O LOWER ABD PAIN EXTENDING TO RIGHT AROUND THE BACK X 2 WEEKS. WORST. RR EVEN AND UNLABORED. VSS. NO ACUTE DISTRESS NOTED. AWAITING MD FOR EVAL.
[2019-11-29] MEDS ORDERED: KETOROLAC TROMETHAMINE INJ 30 MG/ML VIAL IV ONE (05:00)
[2019-11-29 05:09] LABS: APPEARANCE,URINE Slightly Cloudy (CLEAR); BILIRUBIN,URINE Negative (NEGATIVE); BLOOD, URINE Large Ery/uL (NEGATIVE); COLOR,URINE Yellow (YELLOW); KETONES,URINE Trace (NEGATIVE); LEUKOCYTE ESTERASE ,URINE Trace (NEGATIVE); NITRITE, URINE Negative (NEGATIVE); PROTEIN,URINE 100 mg/dl (NEGATIVE); UGLUCOSE Negative (NEGATIVE); UROBILINOGEN,URINE 0.2 EU/dL (0.2)
[2019-11-29 05:17] LABS: BACTERIA,URINE Few /HPF (None Seen); RBC,URINE 51-80 /HPF (0-2); SQUAMOUS EPITHELIAL CELL,UR Moderate /HPF (None Seen); WBC,URINE 0-2 /HPF (0-3)
--- NOTE | 2019-11-29 06:20 | NUR ---
Patient discharged to home in stable condition. Written and verbal after care instructions given. Patient verbalizes understanding of instruction and RX. VSS.
--- NOTE | 2019-11-29 06:20 | NUR ---
IV removed. Catheter intact and site benign. Pressure and 4x4 applied to site. No bleeding noted.
[2019-11-29 06:21] VITALS: BP 128/82
== END 2019-11-29 06:22 | disposition home or self-care (01) ==
LOC: ER 04:35
DX: N20.0 Calculus of kidney (principal); I10 Essential (primary) hypertension; G89.29 Other chronic pain; E78.00 Pure hypercholesterolemia, unspecified; F17.200 Nicotine dependence, unspecified, uncomplicated; F31.9 Bipolar disorder, unspecified; Z90.89 Acquired absence of other organs; Z79.899 Other long term (current) drug therapy
CPT/HCPCS: 74176; 81001; 96374; 99284; J1885; 81000-TC

== ENCOUNTER 2021-02-23 22:53 | Emergency (ER) | payer MEDICARE, OTHER ==
[~2021-02-23] VITALS: Ht 160 cm; Wt 83.5 kg
[~2021-02-23 22:53] MED LIST changes: +AMLO-213 PO; -AMLO10TA7 PO
--- NOTE | 2021-02-24 00:17 | NUR ---
bibself c/o RLQ abd pain radiating to back. +nv. pt aox4 rr even and unlabored. no sob noted. no nvd at this time. pt gowned and placed on monitor. pt evaluated by dr. vaughn.
--- NOTE | 2021-02-24 00:20 | NUR ---
urine collected. sent to lab
[2021-02-24] MEDS ORDERED: ONDANSETRON HCL/PF 4 MG/2 ML VIAL IVP ONE (00:30)
[2021-02-24] MEDS ORDERED: HYDROMORPHONE INJ 2 MG/ML DISP.SYRIN IV ONE (00:30)
[2021-02-24] MEDS ORDERED: KETOROLAC TROMETHAMINE INJ 30 MG/ML VIAL IV ONE (00:30)
[2021-02-24] MEDS ORDERED: KETOROLAC TROMETHAMINE 15 MG/ML VIAL ONE (00:31)
[2021-02-24] MEDS ORDERED: HYDROMORPHONE 1 MG/1 ML DISP.SYRIN ONE (00:31)
[2021-02-24] MEDS ORDERED: ONDANSETRON HCL/PF 4 MG/2 ML VIAL ONE (00:31)
[2021-02-24 00:32] LABS: BASOPHILS # (AUTO) 0.1 /CMM (0.0-0.2); BASOPHILS % (AUTO) 0.7 % (0.0-2.0); EOSINOPHILS % (AUTO) 0.9 % (0.0-6.0); HEMATOCRIT 45 % (33-45); HEMOGLOBIN 14.5 g/dL (11.5-14.8); LYMPHOCYTES # (AUTO) 1.6 /CMM (0.8-4.8); LYMPHOCYTES % (AUTO) 16.7 % (20.0-44.0); MEAN CORPUSCULAR HGB CONC 32 g/dl (31.0-36.0); MEAN CORPUSCULAR VOLUME 94 fL (82-100); MONOCYTES # (AUTO) 0.4 /CMM (0.1-1.30); MONOCYTES % (AUTO) 4.4 % (2.0-12.0); NEUTROPHILS # (AUTO) 7.4 /CMM (1.8-8.9); NEUTROPHILS % (AUTO) 77.3 % (43.0-81.0); PLATELET COUNT (AUTO) 323 /CMM (150-450); RED BLOOD CELL COUNT(AUTO) 4.75 MIL/uL (4.0-5.2); WHITE BLOOD COUNT (AUTO) 9.6 K/uL (4.3-11.0)
[2021-02-24 00:43] LABS: CALCIUM, SERUM 9.5 mg/dL (8.5-10.1); CREATININE 0.8 mg/dL (0.6-1.3); POTASSIUM 3.6 mmol/L (3.5-5.1)
[2021-02-24 00:48] LABS: ALBUMIN 3.8 g/dL (3.4-5.0); BILIRUBIN,DIRECT 0.1 mg/dL (0.0-0.2); BILIRUBIN,TOTAL 0.2 mg/dL (0.2-1.0); TOTAL PROTEIN, SERUM 7.9 g/dL (6.4-8.2)
[2021-02-24 00:50] LABS: BILIRUBIN,URINE SMALL (NEGATIVE); COLOR,URINE DARK YELLOW (YELLOW); LEUKOCYTE ESTERASE ,URINE Trace (NEGATIVE); NITRITE, URINE Negative (NEGATIVE); PROTEIN,URINE 100 mg/dl (NEGATIVE); UGLUCOSE Negative (NEGATIVE); UROBILINOGEN,URINE 0.2 EU/dL (0.2)
--- NOTE | 2021-02-24 00:50 | NUR ---
us at bedside
[2021-02-24 01:19] LABS: BACTERIA,URINE Moderate /HPF (None Seen); CALCIUM OXALATE CRYSTALS,UR Many /HPF (None Seen); MUCUS,URINE Few /LPF (None Seen); RBC,URINE 51-80 /HPF (0-2); SQUAMOUS EPITHELIAL CELL,UR Moderate /HPF (None Seen)
[2021-02-24] MEDS ORDERED: HYDR-3980 PO (02:09)
[2021-02-24] MEDS ORDERED: ONDA4TAB5 PO (02:09)
[2021-02-24] MEDS ORDERED: CLONIDINE HCL 0.1 MG TABLET ONE (02:15)
[2021-02-24] MEDS ORDERED: CLONIDINE HCL 0.1 MG TABLET PO ONE (02:30)
--- NOTE | 2021-02-24 02:36 | NUR ---
pt cleared for discharge per dr. vaughn. IV removed. Catheter intact and site benign. Pressure and 4x4 applied to site. No bleeding noted. PT ambulatory with a steady gait. Patient discharged to home in stable condition. Written and verbal after care instructions given. Patient verbalizes understanding of instruction.
[2021-02-24 04:13] VITALS: BP 154/87
== END 2021-02-24 02:36 | disposition home or self-care (01) ==
LOC: ER 22:53
DX: N13.30 Unspecified hydronephrosis (principal); G89.29 Other chronic pain; R10.84 Generalized abdominal pain; F17.210 Nicotine dependence, cigarettes, uncomplicated; I10 Essential (primary) hypertension; M54.5 Low back pain; E78.00 Pure hypercholesterolemia, unspecified; F31.9 Bipolar disorder, unspecified; F10.10 Alcohol abuse, uncomplicated; Y90.9 Presence of alcohol in blood, level not specified; Z87.442 Personal history of urinary calculi; Z90.89 Acquired absence of other organs; Z98.890 Other specified postprocedural states; Z79.899 Other long term (current) drug therapy
CPT/HCPCS: 36415; 76705; 76770; 80048; 80076; 81001; 83690; 85025; 85730; 96374; 96375; 99285; 99406; J1170; J1885; J2405; 87086-TC

== ENCOUNTER 2022-01-27 12:11 | Emergency (ER) | payer MEDICARE, OTHER ==
[~2022-01-27] VITALS: Ht 160 cm; Wt 77.1 kg
[~2022-01-27 12:11] MED LIST changes: +HYDR-3980 PO; +ONDA4TAB5 PO
--- NOTE | 2022-01-27 12:15 | NUR ---
BIBS C/O BLD IN URINE x 2 DAYS, ALSO C/O R SIDED ABD PAIN. AMBULATORY, AAOX4, IN PAIN 05/10
--- NOTE | 2022-01-27 12:20 | NUR ---
AT BED SIDE
--- NOTE | 2022-01-27 12:50 | NUR ---
CHAPERONED DR PETERSON FOR OCCULT BLOOD
[2022-01-27] MEDS ORDERED: FAMOTIDINE/PF INJ 20 MG/2 ML VIAL IV ONE ×2 (13:00→13:26)
[2022-01-27] MEDS ORDERED: LIDOCAINE VISCOUS 2% UD 15 ML UDC MM ONE (13:00)
[2022-01-27] MEDS ORDERED: MAG HYDROX/AL HYDROX/SIMETH 30 ML UDC PO ONE (13:00)
[2022-01-27] MEDS ORDERED: IV NS 0.9% 1,000 ML BAG IV ONE (13:00)
[2022-01-27] MEDS ORDERED: MAG HYDROX/AL HYDROX/SIMETH 30 ML UDC ONE (13:25)
[2022-01-27] MEDS ORDERED: LIDOCAINE VISCOUS 2% UD 15 ML UDC ONE (13:29)
[2022-01-27 13:31] LABS: BASOPHILS % (AUTO) 0.7 % (0.0-2.0); EOSINOPHILS % (AUTO) 0.8 % (0.0-6.0); HEMATOCRIT 44 % (33-45); HEMOGLOBIN 14.6 g/dL (11.5-14.8); LYMPHOCYTES # (AUTO) 1.4 K/uL (0.8-4.8); LYMPHOCYTES % (AUTO) 21.9 % (20.0-44.0); MEAN CORPUSCULAR HGB CONC 33 g/dl (31.0-36.0); MEAN CORPUSCULAR VOLUME 89 fL (82-100); MONOCYTES # (AUTO) 0.4 K/uL (0.1-1.30); MONOCYTES % (AUTO) 5.9 % (2.0-12.0); NEUTROPHILS # (AUTO) 4.4 K/uL (1.8-8.9); NEUTROPHILS % (AUTO) 70.7 % (43.0-81.0); PLATELET COUNT (AUTO) 211 K/uL (150-450); RED BLOOD CELL COUNT(AUTO) 4.97 MIL/uL (4.0-5.2); WHITE BLOOD COUNT (AUTO) 6.3 K/uL (4.3-11.0)
[2022-01-27 13:35] LABS: CALCIUM, SERUM 8.7 mg/dL (8.5-10.1); CREATININE 0.8 mg/dL (0.6-1.3); POTASSIUM 3.8 mmol/L (3.5-5.1)
[2022-01-27 13:39] LABS: BILIRUBIN,URINE SMALL (NEGATIVE); COLOR,URINE YELLOW (YELLOW); LEUKOCYTE ESTERASE ,URINE NEGATIVE (NEGATIVE); NITRITE, URINE NEGATIVE (NEGATIVE); PROTEIN,URINE 30 mg/dl (NEGATIVE); UGLUCOSE NEGATIVE (NEGATIVE); UROBILINOGEN,URINE 0.2 EU/dL (0.2)
[2022-01-27 13:42] LABS: ALBUMIN 4.2 g/dL (3.4-5.0); BILIRUBIN,DIRECT 0.1 mg/dL (0.0-0.2); BILIRUBIN,TOTAL 0.2 mg/dL (0.2-1.0); TOTAL PROTEIN, SERUM 7.7 g/dL (6.4-8.2)
[2022-01-27 13:54] LABS: BACTERIA,URINE Few /HPF (None Seen); WBC,URINE 0-2 /HPF (0-3)
[2022-01-27] MEDS ORDERED: FAMO-131 PO (14:25)
[2022-01-27] MEDS ORDERED: ONDA4TAB5 PO (14:25)
--- NOTE | 2022-01-27 14:37 | NUR ---
IV removed. Catheter intact and site benign. Pressure and 4x4 applied to site. No bleeding noted.Patient discharged to home in stable condition. Written and verbal after care instructions given. Patient verbalizes understanding of instruction.
[2022-01-27 15:25] LABS: OCCULT BLOOD STOOL POSITIVE (NEGATIVE)
[2022-01-27 15:46] VITALS: BP 165/99
== END 2022-01-27 14:37 | disposition home or self-care (01) ==
LOC: ER 12:15
DX: K92.2 Gastrointestinal hemorrhage, unspecified (principal); K74.60 Unspecified cirrhosis of liver; K64.4 Residual hemorrhoidal skin tags; F10.10 Alcohol abuse, uncomplicated; I10 Essential (primary) hypertension; E78.5 Hyperlipidemia, unspecified; F31.9 Bipolar disorder, unspecified; F17.200 Nicotine dependence, unspecified, uncomplicated; G89.29 Other chronic pain; Z98.890 Other specified postprocedural states; Z90.89 Acquired absence of other organs; Z79.899 Other long term (current) drug therapy; Y90.0 Blood alcohol level of less than 20 mg/100 ml
CPT/HCPCS: 36415; 74176; 80048; 80076; 80320; 81001; 82272; 83690; 84703; 85025; 93005; 96361; 96374; 99285; 99406; J3490; J7030; G0480

== ENCOUNTER 2023-07-17 14:21 | Emergency (ER) | payer MEDICARE, OTHER ==
[~2023-07-17] VITALS: Ht 160 cm; Wt 77.1 kg
[~2023-07-17 14:21] MED LIST changes: +FAMO-131 PO
[2023-07-17] MEDS ORDERED: KETOROLAC TROMETHAMINE INJ 30 MG/ML VIAL IV ONE (15:00)
[2023-07-17] MEDS ORDERED: FAMOTIDINE/PF INJ 20 MG/2 ML VIAL IV ONE ×2 (15:00→15:03)
[2023-07-17] MEDS ORDERED: ONDANSETRON HCL/PF 4 MG/2 ML VIAL IVP ONE (15:00)
[2023-07-17] MEDS ORDERED: IV NS 0.9% 1,000 ML BAG IV ONE (15:00)
[2023-07-17] MEDS ORDERED: ONDANSETRON HCL/PF 4 MG/2 ML VIAL ONE (15:03)
[2023-07-17] MEDS ORDERED: KETOROLAC TROMETHAMINE 15 MG/ML VIAL ONE (15:03)
[2023-07-17 15:05] LABS: BASOPHILS # (AUTO) 0.1 K/uL (0.0-0.2); BASOPHILS % (AUTO) 0.9 % (0.0-2.0); EOSINOPHILS # (AUTO) 0.2 K/uL (0.0-0.7); EOSINOPHILS % (AUTO) 2.6 % (0.0-6.0); HEMATOCRIT 40 % (33-45); LYMPHOCYTES # (AUTO) 1.5 K/uL (0.8-4.8); LYMPHOCYTES % (AUTO) 20.7 % (20.0-44.0); MEAN CORPUSCULAR HEMOGLOBIN 30 PG (26.0-33.0); MEAN CORPUSCULAR HGB CONC 32 g/dl (31.0-36.0); MEAN CORPUSCULAR VOLUME 92 fL (82-100); MONOCYTES # (AUTO) 0.4 K/uL (0.1-1.30); MONOCYTES % (AUTO) 5.5 % (2.0-12.0); NEUTROPHILS # (AUTO) 5.2 K/uL (1.8-8.9); NEUTROPHILS % (AUTO) 70.3 % (43.0-81.0); PLATELET COUNT (AUTO) 411 K/uL (150-450); RED CELL DISTRIBUTION WIDTH 15.7 % (11.5-15.0); WHITE BLOOD COUNT (AUTO) 7.4 K/uL (4.3-11.0)
[2023-07-17 15:23] LABS: CALCIUM, SERUM 9.3 mg/dL (8.5-10.1); CARBON DIOXIDE 25 mmol/L (21-32); CHLORIDE 102 mmol/L (98-107); CREATININE 0.4 mg/dL (0.6-1.3); GLUCOSE 122 mg/dL (74-106); SODIUM SERUM 142 mmol/L (136-145); UREA NITROGEN, BLOOD 10 mg/dL (7-18)
[2023-07-17 15:28] LABS: ALANINE AMINOTRANSFERASE 20 U/L (12-78); ALBUMIN 2.5 g/dL (3.4-5.0); ALKALINE PHOSPHATASE 126 U/L (46-116); ASPARTATE AMINOTRANSFERASE 18 U/L (15-37); BILIRUBIN,DIRECT 0.1 mg/dL (0.0-0.2); BILIRUBIN,TOTAL 0.2 mg/dL (0.2-1.0); LIPASE 291 U/L (16-77); POTASSIUM 2.7 mmol/L (3.5-5.1)
[2023-07-17] MEDS ORDERED: POTASSIUM CHLORIDE 20 MEQ POWDER PACKET PO ONE (15:30)
[2023-07-17] MEDS ORDERED: POTASSIUM CHLORIDE 20 MEQ POWDER PACKET ONE (15:32)
[2023-07-17] MEDS ORDERED: ONDA4TAB5 PO (16:05)
[2023-07-17 16:12] VITALS: BP 133/84; TEMP 98.2; O2SAT 98
== END 2023-07-17 16:13 | disposition home or self-care (01) ==
LOC: ER 14:26
DX: R10.13 Epigastric pain (principal); I10 Essential (primary) hypertension; E78.5 Hyperlipidemia, unspecified; F31.9 Bipolar disorder, unspecified; F17.200 Nicotine dependence, unspecified, uncomplicated; Z98.890 Other specified postprocedural states; Z79.899 Other long term (current) drug therapy
CPT/HCPCS: 99285; 96374; 71045; 96375; 96361; 93005; 85025; 80048; 83690; 80076; 36415; 84484; J3490; J2405; J7030; J1885

== ENCOUNTER 2023-08-14 22:06 | Inpatient (IN) | payer MEDICARE, OTHER ==
[~2023-08-14] VITALS: Ht 160 cm; Wt 80.3 kg
[2023-08-14] MEDS ORDERED: PANTOPRAZOLE 40 MG VIAL ONE (22:40)
[2023-08-14] MEDS ORDERED: ONDANSETRON HCL/PF 4 MG/2 ML VIAL ONE (22:41)
[2023-08-14] MEDS ORDERED: LIDOCAINE VISCOUS 2% UD 15 ML UDC ONE (22:41)
[2023-08-14] MEDS ORDERED: MAG HYDROX/AL HYDROX/SIMETH 30 ML UDC ONE (22:41)
[2023-08-14] MEDS ORDERED: KETOROLAC TROMETHAMINE INJ 30 MG/ML VIAL ONE (22:41)
[2023-08-14 22:47] LABS: BASOPHILS # (AUTO) 0.1 K/uL (0.0-0.2); BASOPHILS % (AUTO) 0.7 % (0.0-2.0); EOSINOPHILS # (AUTO) 0.3 K/uL (0.0-0.7); HEMATOCRIT 38 % (33-45); HEMOGLOBIN 12.1 g/dL (11.5-14.8); LYMPHOCYTES # (AUTO) 1.6 K/uL (0.8-4.8); LYMPHOCYTES % (AUTO) 17.9 % (20.0-44.0); MEAN CORPUSCULAR HEMOGLOBIN 28 PG (26.0-33.0); MEAN CORPUSCULAR HGB CONC 32 g/dl (31.0-36.0); MEAN CORPUSCULAR VOLUME 87 fL (82-100); MONOCYTES # (AUTO) 0.5 K/uL (0.1-1.30); MONOCYTES % (AUTO) 5.9 % (2.0-12.0); NEUTROPHILS # (AUTO) 6.4 K/uL (1.8-8.9); NEUTROPHILS % (AUTO) 72.5 % (43.0-81.0); PLATELET COUNT (AUTO) 472 K/uL (150-450); RED BLOOD CELL COUNT(AUTO) 4.33 MIL/uL (4.0-5.2); RED CELL DISTRIBUTION WIDTH 15.2 % (11.5-15.0); WHITE BLOOD COUNT (AUTO) 8.8 K/uL (4.3-11.0)
[2023-08-14 22:54] LABS: APPEARANCE,URINE SLIGHTLY CLOUDY (CLEAR); BILIRUBIN,URINE NEGATIVE (NEGATIVE); BLOOD, URINE 3+ Ery/uL (NEGATIVE); COLOR,URINE YELLOW (YELLOW); KETONES,URINE NEGATIVE (NEGATIVE); LEUKOCYTE ESTERASE ,URINE 1+ (NEGATIVE); NITRITE, URINE NEGATIVE (NEGATIVE); PH,URINE 6.5 (5.0-8.0); PROTEIN,URINE TRACE mg/dl (NEGATIVE); UGLUCOSE NEGATIVE (NEGATIVE)
[2023-08-14] MEDS ORDERED: KETOROLAC TROMETHAMINE INJ 30 MG/ML VIAL IV ONE (23:00)
[2023-08-14] MEDS ORDERED: ONDANSETRON HCL/PF 4 MG/2 ML VIAL IVP ONE (23:00)
[2023-08-14] MEDS ORDERED: IV NS 0.9% 1,000 ML BAG IV ONE (23:00)
[2023-08-14] MEDS ORDERED: PANTOPRAZOLE 40 MG VIAL IV ONE (23:00)
[2023-08-14] MEDS ORDERED: MAG HYDROX/AL HYDROX/SIMETH 30 ML UDC PO ONE (23:00)
[2023-08-14] MEDS ORDERED: LIDOCAINE VISCOUS 2% UD 15 ML UDC MM ONE (23:00)
[2023-08-14 23:05] LABS: LACTIC ACID 1.7 mmol/L (0.4-2.0)
[2023-08-14 23:09] LABS: ALBUMIN 2.2 g/dL (3.4-5.0); BILIRUBIN,DIRECT 0.1 mg/dL (0.0-0.2); BILIRUBIN,TOTAL 0.2 mg/dL (0.2-1.0); CALCIUM, SERUM 8.7 mg/dL (8.5-10.1); CREATININE 0.7 mg/dL (0.6-1.3); TOTAL PROTEIN, SERUM 7.4 g/dL (6.4-8.2)
[2023-08-14 23:15] LABS: INR 1.11 (0.91-1.10); PARTIAL THROMBOPLASTIN TIME 30.5 SEC (24.3-34.3); PROTHROMBIN TIME 11.7 SECS (9.2-11.1)
[2023-08-14 23:19] LABS: POTASSIUM 2.4 mmol/L (3.5-5.1)
[2023-08-14] MEDS ORDERED: IOHEXOL-300 100 ML VIAL IV ONE (23:28)
[2023-08-14] MEDS ORDERED: POTASSIUM CHLORIDE 20 MEQ TAB.PRT.SR PO ONE (23:30)
[2023-08-14] MEDS ORDERED: POTASSIUM CL. PREMIX PERIPHER. 100 ML ONE (23:31)
[2023-08-14] MEDS ORDERED: IV NS 0.9% 250 ML IV ONE (23:32)
[2023-08-14] MEDS ORDERED: CT SWABBABLE VALVE TRANS SET 1 EA INFUS.SET MC ONE (23:32)
[2023-08-14 23:39] LABS: ADD URINE CULTURE YES; BACTERIA,URINE Many /HPF (None Seen)
[2023-08-14 23:40] LABS: MUCUS,URINE Moderate /LPF (None Seen); SQUAMOUS EPITHELIAL CELL,UR Few /HPF (None Seen)
[2023-08-15] MEDS ORDERED: MAG HYDROX/AL HYDROX/SIMETH 30 ML UDC PO PRN
[2023-08-15] MEDS ORDERED: MORPHINE SULFATE INJ 2 MG/ML DISP.SYRIN IV ONE
[2023-08-15] MEDS ORDERED: MAGNESIUM HYDROXIDE 30 ML UDC PO PRN
[2023-08-15] MEDS ORDERED: Z GUARD REMEDY 4 OZ OINT TP PRN
[2023-08-15] MEDS ORDERED: ONDANSETRON HCL/PF 4 MG/2 ML VIAL IVP PRN
[2023-08-15] MEDS ORDERED: MORPHINE SULFATE INJ 4 MG/ML DISP.SYRIN ONE (00:02)
[2023-08-15] MEDS ORDERED: POTASSIUM CHLORIDE 20 MEQ TAB.PRT.SR PO ONE (00:03)
[2023-08-15] MEDS: POTASSIUM CL. PREMIX PERIPHER. 50 ML IV SCH ×4 (01:07→03:58)
[2023-08-15 01:30] VITALS: BP 145/103; TEMP 99.3; O2SAT 97
[2023-08-15] MEDS: PANTOPRAZOLE 40 MG VIAL IV SCH ×2 (01:35→08:18)
[2023-08-15] MEDS: IV NS 0.9% 1,000 ML IV PRN (01:39)
[2023-08-15] MEDS: MORPHINE SULFATE INJ 2 MG/ML DISP.SYRIN IV PRN ×2 (04:11→08:19)
[2023-08-15 04:30] VITALS: BP 149/106; TEMP 99.1; O2SAT 94
[2023-08-15] MEDS ORDERED: FAMO-131 PO (08:01)
[2023-08-15] MEDS ORDERED: TRAM50TA2 PO (08:01)
[2023-08-15 08:19] LABS: BASOPHILS % (AUTO) 0.4 % (0.0-2.0); EOSINOPHILS # (AUTO) 0.2 K/uL (0.0-0.7); EOSINOPHILS % (AUTO) 2.3 % (0.0-6.0); HEMATOCRIT 37 % (33-45); HEMOGLOBIN 11.8 g/dL (11.5-14.8); LYMPHOCYTES % (AUTO) 13.9 % (20.0-44.0); MEAN CORPUSCULAR HEMOGLOBIN 28 PG (26.0-33.0); MEAN CORPUSCULAR HGB CONC 32 g/dl (31.0-36.0); MEAN CORPUSCULAR VOLUME 87 fL (82-100); MONOCYTES # (AUTO) 0.6 K/uL (0.1-1.30); NEUTROPHILS # (AUTO) 5.6 K/uL (1.8-8.9); NEUTROPHILS % (AUTO) 75.4 % (43.0-81.0); PLATELET COUNT (AUTO) 448 K/uL (150-450); RED BLOOD CELL COUNT(AUTO) 4.27 MIL/uL (4.0-5.2); RED CELL DISTRIBUTION WIDTH 15.4 % (11.5-15.0); WHITE BLOOD COUNT (AUTO) 7.4 K/uL (4.3-11.0)
[2023-08-15 08:22] LABS: CALCIUM, SERUM 8.1 mg/dL (8.5-10.1); CREATININE 0.5 mg/dL (0.6-1.3); MAGNESIUM 1.7 mg/dL (1.8-2.4); PHOSPHORUS 3.1 mg/dL (2.5-4.9); POTASSIUM 3.5 mmol/L (3.5-5.1)
[2023-08-15] MEDS: AMLODIPINE BESYLATE 10 MG TABLET PO SCH (09:22)
[2023-08-15] MEDS: ZOSYN IVPB 3.375 G in IV D5W 50ml IV SCH ×3 (09:22→23:00)
[2023-08-15] MEDS: FAMOTIDINE (20 MG) 20 MG TABLET PO SCH ×2 (09:22→17:22)
[2023-08-15 10:00] VITALS: BP 150/90; TEMP 99.5; O2SAT 95
[2023-08-15 12:00] VITALS: BP 150/90; TEMP 99.5; O2SAT 95
[2023-08-15] MEDS ORDERED: MAGNESIUM OXIDE 400 MG TABLET PO ONE (12:30)
[2023-08-15] MEDS: HYDROMORPHONE 1 MG/1 ML DISP.SYRIN IV PRN ×3 (13:36→22:55)
[2023-08-15 16:00] VITALS: BP 135/93; TEMP 99.4; O2SAT 93
[2023-08-15 20:00] VITALS: BP 154/91; TEMP 98.4; O2SAT 97
[2023-08-16] VITALS: BP 145/86; TEMP 99.1; O2SAT 94
[2023-08-16] MEDS: HYDROMORPHONE 1 MG/1 ML DISP.SYRIN IV PRN ×3 (03:46→20:10)
[2023-08-16 04:00] VITALS: BP 140/83; TEMP 99.3; O2SAT 94
[2023-08-16] MEDS: ZOSYN IVPB 3.375 G in IV D5W 50ml IV SCH ×3 (05:19→17:40)
[2023-08-16] MEDS: AMLODIPINE BESYLATE 10 MG TABLET PO SCH (08:21)
[2023-08-16] MEDS: FAMOTIDINE (20 MG) 20 MG TABLET PO SCH ×2 (08:21→17:39)
[2023-08-16] MEDS: PANTOPRAZOLE 40 MG TABLET.DR PO SCH (08:22)
[2023-08-16 09:00] VITALS: BP 171/98; TEMP 98.1; O2SAT 94
[2023-08-16 10:36] LABS: BILIRUBIN,DIRECT 0.1 mg/dL (0.0-0.2); BILIRUBIN,TOTAL 0.3 mg/dL (0.2-1.0); CALCIUM, SERUM 8.7 mg/dL (8.5-10.1); CREATININE 0.6 mg/dL (0.6-1.3); MAGNESIUM 1.9 mg/dL (1.8-2.4); PHOSPHORUS 3.1 mg/dL (2.5-4.9); POTASSIUM 3.1 mmol/L (3.5-5.1); TOTAL PROTEIN, SERUM 6.8 g/dL (6.4-8.2)
[2023-08-16 11:18] LABS: BASOPHILS % (AUTO) 0.4 % (0.0-2.0); EOSINOPHILS # (AUTO) 0.2 K/uL (0.0-0.7); EOSINOPHILS % (AUTO) 2.5 % (0.0-6.0); HEMATOCRIT 35 % (33-45); HEMOGLOBIN 11.4 g/dL (11.5-14.8); LYMPHOCYTES # (AUTO) 0.8 K/uL (0.8-4.8); LYMPHOCYTES % (AUTO) 10.6 % (20.0-44.0); MEAN CORPUSCULAR HEMOGLOBIN 28 PG (26.0-33.0); MEAN CORPUSCULAR HGB CONC 33 g/dl (31.0-36.0); MEAN CORPUSCULAR VOLUME 86 fL (82-100); MONOCYTES # (AUTO) 0.5 K/uL (0.1-1.30); MONOCYTES % (AUTO) 6.4 % (2.0-12.0); NEUTROPHILS # (AUTO) 6.3 K/uL (1.8-8.9); NEUTROPHILS % (AUTO) 80.1 % (43.0-81.0); PLATELET COUNT (AUTO) 447 K/uL (150-450); RED BLOOD CELL COUNT(AUTO) 4.06 MIL/uL (4.0-5.2); RED CELL DISTRIBUTION WIDTH 15.5 % (11.5-15.0); WHITE BLOOD COUNT (AUTO) 7.8 K/uL (4.3-11.0)
[2023-08-16 12:26] VITALS: BP 171/98; TEMP 98.1; O2SAT 94
[2023-08-16] MEDS: LORAZEPAM INJ 2 MG/ML VIAL IV PRN (15:01)
[2023-08-16 20:00] VITALS: BP 150/100; TEMP 98; O2SAT 100
[2023-08-16] MEDS ORDERED: TIOTROPIUM BROMIDE 6 CAP/BOX CAP.W.DEV IH SCH (21:00)
[2023-08-17] MEDS: ZOSYN IVPB 3.375 G in IV D5W 50ml IV SCH ×2 (01:15→05:29)
[2023-08-17] MEDS: HYDROMORPHONE 1 MG/1 ML DISP.SYRIN IV PRN ×3 (01:37→17:09)
[2023-08-17 04:00] VITALS: BP 142/98; TEMP 98; O2SAT 100
[2023-08-17] MEDS: LORAZEPAM INJ 2 MG/ML VIAL IV PRN ×2 (04:15→20:05)
[2023-08-17] MEDS: IV NS 0.9% 1,000 ML IV PRN (04:46)
[2023-08-17] MEDS ORDERED: IV NS 0.9% 1,000 ML IV PRN (08:00)
[2023-08-17] MEDS: AMLODIPINE BESYLATE 10 MG TABLET PO SCH (09:21)
[2023-08-17] MEDS: FAMOTIDINE (20 MG) 20 MG TABLET PO SCH ×2 (09:21→17:45)
[2023-08-17] MEDS: PANTOPRAZOLE 40 MG TABLET.DR PO SCH (09:21)
[2023-08-17 10:00] VITALS: BP 148/82; TEMP 97.7; O2SAT 95
[2023-08-17 12:00] VITALS: BP 148/82; TEMP 97.7; O2SAT 95
[2023-08-17] MEDS: PIPERACILLIN /TAZOBACTAM 3.375 G in IV D5W 100 ML IV SCH ×2 (12:39→21:08)
[2023-08-17 15:27] LABS: BASOPHILS # (AUTO) 0.1 K/uL (0.0-0.2); BASOPHILS % (AUTO) 0.6 % (0.0-2.0); EOSINOPHILS # (AUTO) 0.1 K/uL (0.0-0.7); EOSINOPHILS % (AUTO) 1.5 % (0.0-6.0); HEMATOCRIT 36 % (33-45); HEMOGLOBIN 11.5 g/dL (11.5-14.8); LYMPHOCYTES # (AUTO) 1.2 K/uL (0.8-4.8); LYMPHOCYTES % (AUTO) 14.5 % (20.0-44.0); MEAN CORPUSCULAR HEMOGLOBIN 28 PG (26.0-33.0); MEAN CORPUSCULAR HGB CONC 32 g/dl (31.0-36.0); MEAN CORPUSCULAR VOLUME 87 fL (82-100); MONOCYTES # (AUTO) 0.4 K/uL (0.1-1.30); MONOCYTES % (AUTO) 4.7 % (2.0-12.0); NEUTROPHILS # (AUTO) 6.6 K/uL (1.8-8.9); NEUTROPHILS % (AUTO) 78.7 % (43.0-81.0); PLATELET COUNT (AUTO) 513 K/uL (150-450); RED BLOOD CELL COUNT(AUTO) 4.13 MIL/uL (4.0-5.2); RED CELL DISTRIBUTION WIDTH 15.6 % (11.5-15.0); WHITE BLOOD COUNT (AUTO) 8.4 K/uL (4.3-11.0)
[2023-08-17 16:40] LABS: CALCIUM, SERUM 8.7 mg/dL (8.5-10.1); CREATININE 0.6 mg/dL (0.6-1.3); PHOSPHORUS 3.1 mg/dL (2.5-4.9); POTASSIUM 3.2 mmol/L (3.5-5.1)
[2023-08-17] MEDS: POTASSIUM CL. PREMIX PERIPHER. 50 ML IV SCH ×4 (19:46→23:00)
[2023-08-17] MEDS: IPRATROPIUM NEB FS 0.5 MG/2.5 ML AMPUL.NEB NEB SCH (20:04)
[2023-08-17 20:05] VITALS: O2SAT 96
[2023-08-17 20:16] VITALS: O2SAT 96
[2023-08-17] MEDS: ACETAMINOPHEN 325 MG TABLET PO PRN (20:48)
[2023-08-17 20:50] VITALS: BP 145/90; TEMP 99.7; O2SAT 98
[2023-08-18] VITALS (10 sets, daily range): BP systolic 109–166; BP diastolic 88–117; TEMP 98.2–99.1; O2SAT 96–98
[2023-08-18] MEDS: IPRATROPIUM NEB FS 0.5 MG/2.5 ML AMPUL.NEB NEB SCH ×5 (01:30→19:36)
[2023-08-18 02:15] LABS: ALBUMIN 2.1 g/dL (3.4-5.0); BILIRUBIN,DIRECT 0.1 mg/dL (0.0-0.2); BILIRUBIN,TOTAL 0.3 mg/dL (0.2-1.0); TOTAL PROTEIN, SERUM 6.9 g/dL (6.4-8.2)
[2023-08-18] MEDS: PIPERACILLIN /TAZOBACTAM 3.375 G in IV D5W 100 ML IV SCH ×3 (04:30→21:22)
[2023-08-18 07:26] LABS: BASOPHILS # (AUTO) 0.1 K/uL (0.0-0.2); BASOPHILS % (AUTO) 0.8 % (0.0-2.0); EOSINOPHILS # (AUTO) 0.2 K/uL (0.0-0.7); HEMATOCRIT 35 % (33-45); HEMOGLOBIN 11.1 g/dL (11.5-14.8); LYMPHOCYTES # (AUTO) 1.2 K/uL (0.8-4.8); LYMPHOCYTES % (AUTO) 13.9 % (20.0-44.0); MEAN CORPUSCULAR HEMOGLOBIN 27 PG (26.0-33.0); MEAN CORPUSCULAR HGB CONC 32 g/dl (31.0-36.0); MEAN CORPUSCULAR VOLUME 86 fL (82-100); MONOCYTES # (AUTO) 0.4 K/uL (0.1-1.30); NEUTROPHILS # (AUTO) 6.9 K/uL (1.8-8.9); NEUTROPHILS % (AUTO) 78.3 % (43.0-81.0); PLATELET COUNT (AUTO) 498 K/uL (150-450); RED BLOOD CELL COUNT(AUTO) 4.09 MIL/uL (4.0-5.2); RED CELL DISTRIBUTION WIDTH 15.8 % (11.5-15.0); WHITE BLOOD COUNT (AUTO) 8.8 K/uL (4.3-11.0)
[2023-08-18 08:19] LABS: ALBUMIN 1.9 g/dL (3.4-5.0); BILIRUBIN,DIRECT 0.1 mg/dL (0.0-0.2); BILIRUBIN,TOTAL 0.3 mg/dL (0.2-1.0); CALCIUM, SERUM 8.6 mg/dL (8.5-10.1); CREATININE 0.6 mg/dL (0.6-1.3); MAGNESIUM 1.8 mg/dL (1.8-2.4); PHOSPHORUS 2.7 mg/dL (2.5-4.9); POTASSIUM 3.3 mmol/L (3.5-5.1); TOTAL PROTEIN, SERUM 6.6 g/dL (6.4-8.2)
[2023-08-18] MEDS: PANTOPRAZOLE 40 MG TABLET.DR PO SCH (08:39)
[2023-08-18] MEDS: FAMOTIDINE (20 MG) 20 MG TABLET PO SCH ×2 (08:39→16:37)
[2023-08-18] MEDS: AMLODIPINE BESYLATE 10 MG TABLET PO SCH (08:40)
[2023-08-18] MEDS: HYDROMORPHONE 1 MG/1 ML DISP.SYRIN IV PRN ×3 (08:47→20:06)
[2023-08-18] MEDS: ACETAMINOPHEN 325 MG TABLET PO PRN (11:48)
[2023-08-18] MEDS ORDERED: POTASSIUM CHLORIDE 20 MEQ POWDER PACKET PO SCH (14:00)
[2023-08-19] VITALS: BP 163/115; TEMP 99.1; O2SAT 96
[2023-08-19] MEDS: HYDROMORPHONE 1 MG/1 ML DISP.SYRIN IV PRN ×3 (00:06→09:48)
[2023-08-19] MEDS: IPRATROPIUM NEB FS 0.5 MG/2.5 ML AMPUL.NEB NEB SCH ×2 (01:28→07:45)
[2023-08-19 04:00] VITALS: BP 163/115; TEMP 99.1; O2SAT 96
[2023-08-19] MEDS: PIPERACILLIN /TAZOBACTAM 3.375 G in IV D5W 100 ML IV SCH (05:34)
[2023-08-19 07:09] LABS: BASOPHILS # (AUTO) 0.1 K/uL (0.0-0.2); BASOPHILS % (AUTO) 0.6 % (0.0-2.0); EOSINOPHILS # (AUTO) 0.2 K/uL (0.0-0.7); EOSINOPHILS % (AUTO) 2.3 % (0.0-6.0); HEMATOCRIT 35 % (33-45); LYMPHOCYTES # (AUTO) 1.2 K/uL (0.8-4.8); LYMPHOCYTES % (AUTO) 12.9 % (20.0-44.0); MEAN CORPUSCULAR HEMOGLOBIN 27 PG (26.0-33.0); MEAN CORPUSCULAR HGB CONC 32 g/dl (31.0-36.0); MEAN CORPUSCULAR VOLUME 86 fL (82-100); MONOCYTES # (AUTO) 0.6 K/uL (0.1-1.30); MONOCYTES % (AUTO) 6.8 % (2.0-12.0); NEUTROPHILS # (AUTO) 6.9 K/uL (1.8-8.9); NEUTROPHILS % (AUTO) 77.4 % (43.0-81.0); PLATELET COUNT (AUTO) 555 K/uL (150-450); RED BLOOD CELL COUNT(AUTO) 4.06 MIL/uL (4.0-5.2); RED CELL DISTRIBUTION WIDTH 15.6 % (11.5-15.0); WHITE BLOOD COUNT (AUTO) 8.9 K/uL (4.3-11.0)
[2023-08-19 07:45] VITALS: O2SAT 97
[2023-08-19 07:56] VITALS: O2SAT 98
[2023-08-19] MEDS: PANTOPRAZOLE 40 MG TABLET.DR PO SCH (08:21)
[2023-08-19 08:22] VITALS: BP 144/116
[2023-08-19] MEDS: AMLODIPINE BESYLATE 10 MG TABLET PO SCH (08:22)
[2023-08-19] MEDS: FAMOTIDINE (20 MG) 20 MG TABLET PO SCH (08:22)
[2023-08-19] MEDS ORDERED: HYDR-3980 PO (09:12)
[2023-08-19] MEDS ORDERED: LEVO500T90 PO (09:12)
== END 2023-08-19 11:34 | disposition home or self-care (01) | DRG 438 ==
LOC: ER 22:11 → MEDSG1 08-15 00:44
PROVIDERS: ADMIT Internal Medicine; ATTEND Internal Medicine
DX: K85.20 Alcohol induced acute pancreatitis without necrosis or infection (principal); E43 Unspecified severe protein-calorie malnutrition; K86.3 Pseudocyst of pancreas; E87.6 Hypokalemia; E78.5 Hyperlipidemia, unspecified; I10 Essential (primary) hypertension; J44.9 Chronic obstructive pulmonary disease, unspecified; K52.9 Noninfective gastroenteritis and colitis, unspecified; G89.29 Other chronic pain; F31.9 Bipolar disorder, unspecified; Z79.899 Other long term (current) drug therapy; Z90.49 Acquired absence of other specified parts of digestive tract; E88.09 Other disorders of plasma-protein metabolism, not elsewhere classified; F10.20 Alcohol dependence, uncomplicated; Y90.9 Presence of alcohol in blood, level not specified; D73.5 Infarction of spleen; F17.200 Nicotine dependence, unspecified, uncomplicated; K21.9 Gastro-esophageal reflux disease without esophagitis; E66.9 Obesity, unspecified; Z68.31 Body mass index [BMI] 31.0-31.9, adult; Z83.79 Family history of other diseases of the digestive system
CPT/HCPCS: 36415; 80048-TC; 80061-TC; 80076-TC; 81001; 83605-TC; 83690-TC; 83735-TC; 84100-TC; 85025-TC; 85730-TC; 87086-TC; 94799-TC; A4223; C9113; G0378; J1170; J1885; J2060; J2270; J2405; J2543; J3480; J7030; J7050; J7060; Q9967

== ENCOUNTER 2024-06-08 11:17 | Emergency (ER) | payer MEDICARE, OTHER ==
[~2024-06-08] VITALS: Ht 160 cm; Wt 75.7 kg
[~2024-06-08 11:17] MED LIST changes: +LEVO500T90 PO; -NIFE-34 PO; -ONDA4TAB5 PO; -POTA8TAB8 PO
[2024-06-08 11:24] VITALS: TEMP 98.6
[2024-06-08 11:53] LABS: BASOPHILS # (AUTO) 0.1 K/uL (0.0-0.2); BASOPHILS % (AUTO) 0.8 % (0.0-2.0); EOSINOPHILS # (AUTO) 0.1 K/uL (0.0-0.7); EOSINOPHILS % (AUTO) 1.4 % (0.0-6.0); HEMATOCRIT 41 % (33-45); HEMOGLOBIN 13.3 g/dL (11.5-14.8); LYMPHOCYTES # (AUTO) 1.9 K/uL (0.8-4.8); LYMPHOCYTES % (AUTO) 30.2 % (20.0-44.0); MEAN CORPUSCULAR HEMOGLOBIN 30 PG (26.0-33.0); MEAN CORPUSCULAR HGB CONC 33 g/dl (31.0-36.0); MEAN CORPUSCULAR VOLUME 90 fL (82-100); MONOCYTES # (AUTO) 0.4 K/uL (0.1-1.30); MONOCYTES % (AUTO) 6.4 % (2.0-12.0); NEUTROPHILS # (AUTO) 3.8 K/uL (1.8-8.9); NEUTROPHILS % (AUTO) 61.2 % (43.0-81.0); PLATELET COUNT (AUTO) 221 K/uL (150-450); RED BLOOD CELL COUNT(AUTO) 4.49 MIL/uL (4.0-5.2); RED CELL DISTRIBUTION WIDTH 14.5 % (11.5-15.0); WHITE BLOOD COUNT (AUTO) 6.2 K/uL (4.3-11.0)
[2024-06-08 12:01] LABS: APPEARANCE,URINE CLEAR (CLEAR); BILIRUBIN,URINE NEGATIVE (NEGATIVE); BLOOD, URINE 2+ Ery/uL (NEGATIVE); COLOR,URINE YELLOW (YELLOW); KETONES,URINE NEGATIVE (NEGATIVE); LEUKOCYTE ESTERASE ,URINE NEGATIVE (NEGATIVE); NITRITE, URINE NEGATIVE (NEGATIVE); PH,URINE 5.5 (5.0-8.0); PROTEIN,URINE 2+ mg/dl (NEGATIVE); UGLUCOSE NEGATIVE (NEGATIVE)
[2024-06-08 12:07] LABS: ALBUMIN 3.6 g/dL (3.4-5.0); BILIRUBIN,DIRECT 0.1 mg/dL (0.0-0.2); BILIRUBIN,TOTAL 0.5 mg/dL (0.2-1.0); CALCIUM, SERUM 8.7 mg/dL (8.5-10.1); CREATININE 0.7 mg/dL (0.6-1.3); TOTAL PROTEIN, SERUM 7.5 g/dL (6.4-8.2)
[2024-06-08 12:26] LABS: ADD URINE CULTURE YES; BACTERIA,URINE 1+ /HPF (None Seen)
[2024-06-08 12:27] LABS: CALCIUM OXALATE CRYSTALS,UR Few /HPF (None Seen); TRICHOMONAS,URINE None Seen /HPF (None Seen); YEAST,URINE None Seen /HPF (None Seen)
[2024-06-08 12:28] LABS: MUCUS,URINE Few /LPF (None Seen)
[2024-06-08] MEDS ORDERED: NITR100C6 PO (12:32)
[2024-06-08 12:38] VITALS: BP 147/91; O2SAT 99
== END 2024-06-08 12:39 | disposition home or self-care (01) ==
LOC: ER 11:21
DX: N39.0 Urinary tract infection, site not specified (principal); I10 Essential (primary) hypertension; E78.5 Hyperlipidemia, unspecified; F17.200 Nicotine dependence, unspecified, uncomplicated; Z98.890 Other specified postprocedural states; Z79.899 Other long term (current) drug therapy; Z79.891 Long term (current) use of opiate analgesic
CPT/HCPCS: 36415; 80048-TC; 80076-TC; 81001; 83690-TC; 85025-TC

== ENCOUNTER 2025-01-04 08:55 | Inpatient (IN) | payer MEDICARE, OTHER ==
[~2025-01-04] VITALS: Ht 160 cm; Wt 74.6 kg
[~2025-01-04 08:55] MED LIST changes: +NITR100C6 PO
[2025-01-04 09:41] LABS: BASOPHILS % (AUTO) 0.6 % (0.0-2.0); EOSINOPHILS # (AUTO) 0.1 K/uL (0.0-0.7); EOSINOPHILS % (AUTO) 0.9 % (0.0-6.0); HEMATOCRIT 39 % (33-45); LYMPHOCYTES # (AUTO) 1.4 K/uL (0.8-4.8); LYMPHOCYTES % (AUTO) 22.8 % (20.0-44.0); MEAN CORPUSCULAR HEMOGLOBIN 33 PG (26.0-33.0); MEAN CORPUSCULAR HGB CONC 34 g/dl (31.0-36.0); MEAN CORPUSCULAR VOLUME 97 fL (82-100); MONOCYTES # (AUTO) 0.2 K/uL (0.1-1.30); NEUTROPHILS # (AUTO) 4.3 K/uL (1.8-8.9); NEUTROPHILS % (AUTO) 71.7 % (43.0-81.0); PLATELET COUNT (AUTO) 210 K/uL (150-450); RED CELL DISTRIBUTION WIDTH 15.1 % (11.5-15.0)
[2025-01-04 09:54] LABS: ALBUMIN 3.5 g/dL (3.4-5.0); BILIRUBIN,TOTAL 0.6 mg/dL (0.2-1.0); CALCIUM, SERUM 8.4 mg/dL (8.5-10.1); CREATININE 0.5 mg/dL (0.6-1.3); TOTAL PROTEIN, SERUM 7.1 g/dL (6.4-8.2)
[2025-01-04 10:00] LABS: POTASSIUM 2.7 mmol/L (3.5-5.1)
[2025-01-04] MEDS ORDERED: IV NS 0.9% 250 ML IV ONE (10:13)
[2025-01-04] MEDS ORDERED: CT SWABBABLE VALVE TRANS SET 1 EA INFUS.SET MC ONE (10:13)
[2025-01-04] MEDS ORDERED: IOHEXOL-300 100 ML VIAL IV ONE (10:13)
[2025-01-04] MEDS ORDERED: POTASSIUM CL. PREMIX PERIPHER. 50 ML ONE (10:30)
[2025-01-04] MEDS: POTASSIUM CL. PREMIX PERIPHER. 50 ML IV SCH (10:37)
[2025-01-04] MEDS ORDERED: PANTOPRAZOLE 40 MG VIAL ONE (11:49)
[2025-01-04] MEDS ORDERED: CLONIDINE HCL 0.1 MG TABLET ONE (11:49)
[2025-01-04] MEDS ORDERED: POTASSIUM CHLORIDE 20 MEQ TAB.PRT.SR PO ONE (11:50)
[2025-01-04] MEDS: POTASSIUM CHLORIDE 20 MEQ TAB.PRT.SR PO STA (11:58)
[2025-01-04] MEDS: CLONIDINE HCL 0.1 MG TABLET PO STA (12:05)
[2025-01-04] MEDS: POTASSIUM CHLORIDE 20 MEQ POWDER PACKET GT ONE (12:06)
[2025-01-04] MEDS: PANTOPRAZOLE 40 MG VIAL IV ONE (12:06)
[2025-01-04] MEDS ORDERED: POTASSIUM CHLORIDE 20 MEQ POWDER PACKET ONE (12:09)
[2025-01-04 12:20] VITALS: BP 155/105; TEMP 98.6; O2SAT 99
[2025-01-04] MEDS ORDERED: ZOLPIDEM TARTRATE 5 MG TABLET PO PRN (12:30)
[2025-01-04] MEDS ORDERED: MAGNESIUM HYDROXIDE 30 ML UDC PO PRN (12:30)
[2025-01-04] MEDS ORDERED: Z GUARD REMEDY 4 OZ OINT TP PRN (12:30)
[2025-01-04] MEDS ORDERED: ACETAMINOPHEN 325 MG TABLET PO PRN (12:30)
[2025-01-04] MEDS ORDERED: ONDANSETRON HCL/PF 4 MG/2 ML VIAL IVP PRN (12:30)
[2025-01-04] MEDS ORDERED: MAG HYDROX/AL HYDROX/SIMETH 30 ML UDC PO PRN (12:30)
[2025-01-04] MEDS: methylPREDNISolone SOD SUCC 125 MG/2ML VIAL IV SCH (12:43)
[2025-01-04] MEDS: Magnesium 1GM/D5W 100ML PREMIX 100 ML IV SCH (12:44)
[2025-01-04] MEDS: IPRATROPIUM NEB FS 0.5 MG/2.5 ML AMPUL.NEB NEB SCH (15:29)
[2025-01-04] MEDS: ALBUTEROL FS 2.5 MG/3 ML VIAL.NEB NEB SCH (15:29)
[2025-01-04 15:30] VITALS: O2SAT 97
[2025-01-04 15:44] VITALS: O2SAT 100
[2025-01-04 16:05] VITALS: BP 148/110; TEMP 97.9; O2SAT 98
[2025-01-04] MEDS ORDERED: PANTOPRAZOLE 40 MG VIAL IV SCH (21:00)
== END 2025-01-04 17:28 | disposition left against medical advice (07) | DRG 641 ==
LOC: ER 08:55 → TELE1 11:42
PROVIDERS: ADMIT Nurse Practitioner Acute Care; ATTEND Nurse Practitioner Acute Care
DX: E87.6 Hypokalemia (principal); J44.1 Chronic obstructive pulmonary disease with (acute) exacerbation; K21.00 Gastro-esophageal reflux disease with esophagitis, without bleeding; F17.210 Nicotine dependence, cigarettes, uncomplicated; E66.9 Obesity, unspecified; Z68.29 Body mass index [BMI] 29.0-29.9, adult; I10 Essential (primary) hypertension; J98.01 Acute bronchospasm; E78.5 Hyperlipidemia, unspecified; E83.42 Hypomagnesemia; K76.0 Fatty (change of) liver, not elsewhere classified; Z71.6 Tobacco abuse counseling; R13.10 Dysphagia, unspecified; R94.31 Abnormal electrocardiogram [ECG] [EKG]
CPT/HCPCS: 36415; 70491-TC; 71045-TC; 80053-TC; 83735-TC; 84484-TC; 85025-TC; 94762-TC; G0378; J2470; J2919; J3475; J3480; J7050; Q9967

== ENCOUNTER 2025-02-01 02:12 | Emergency (ER) | payer MEDICARE, OTHER ==
[~2025-02-01] VITALS: Ht 162.6 cm; Wt 81.6 kg
[~2025-02-01 02:12] MED LIST changes: -FURO-144 PO; -HYDR-3980 PO; -LEVO500T90 PO; -NITR100C6 PO
[2025-02-01] MEDS: KETOROLAC TROMETHAMINE INJ 30 MG/ML VIAL IV ONE (03:30)
[2025-02-01] MEDS ORDERED: KETOROLAC TROMETHAMINE INJ 30 MG/ML VIAL ONE (03:32)
[2025-02-01 03:43] LABS: BASOPHILS # (AUTO) 0.1 K/uL (0.0-0.2); BASOPHILS % (AUTO) 1.2 % (0.0-2.0); EOSINOPHILS # (AUTO) 0.1 K/uL (0.0-0.7); HEMATOCRIT 40 % (33-45); HEMOGLOBIN 13.3 g/dL (11.5-14.8); LYMPHOCYTES # (AUTO) 1.8 K/uL (0.8-4.8); LYMPHOCYTES % (AUTO) 24.8 % (20.0-44.0); MEAN CORPUSCULAR HEMOGLOBIN 33 PG (26.0-33.0); MEAN CORPUSCULAR HGB CONC 34 g/dl (31.0-36.0); MEAN CORPUSCULAR VOLUME 97 fL (82-100); MONOCYTES # (AUTO) 0.3 K/uL (0.1-1.30); MONOCYTES % (AUTO) 4.7 % (2.0-12.0); NEUTROPHILS % (AUTO) 68.3 % (43.0-81.0); PLATELET COUNT (AUTO) 206 K/uL (150-450); RED CELL DISTRIBUTION WIDTH 15.4 % (11.5-15.0); WHITE BLOOD COUNT (AUTO) 7.3 K/uL (4.3-11.0)
[2025-02-01 03:51] LABS: CALCIUM, SERUM 8.8 mg/dL (8.5-10.1); CREATININE 0.5 mg/dL (0.6-1.3); POTASSIUM 2.9 mmol/L (3.5-5.1)
[2025-02-01 03:58] LABS: ALBUMIN 3.6 g/dL (3.4-5.0); BILIRUBIN,TOTAL 0.4 mg/dL (0.2-1.0); TOTAL PROTEIN, SERUM 7.1 g/dL (6.4-8.2)
[2025-02-01 05:34] LABS: APPEARANCE,URINE CLEAR (CLEAR); BILIRUBIN,URINE NEGATIVE (NEGATIVE); BLOOD, URINE TRACE-INTA Ery/uL (NEGATIVE); COLOR,URINE YELLOW (YELLOW); KETONES,URINE NEGATIVE (NEGATIVE); LEUKOCYTE ESTERASE ,URINE NEGATIVE (NEGATIVE); NITRITE, URINE NEGATIVE (NEGATIVE); PROTEIN,URINE TRACE mg/dl (NEGATIVE); UGLUCOSE NEGATIVE (NEGATIVE); UROBILINOGEN,URINE 0.2 EU/dL (0.2)
[2025-02-01] MEDS ORDERED: POTASSIUM CHLORIDE 20 MEQ TAB.PRT.SR PO ONE (05:51)
[2025-02-01] MEDS ORDERED: POTASSIUM CL. PREMIX PERIPHER. 50 ML ONE (05:51)
[2025-02-01 06:00] LABS: ADD URINE CULTURE YES; WBC,URINE 0-2 /HPF (0-3)
[2025-02-01] MEDS: PANTOPRAZOLE 40 MG VIAL IV ONE (06:00)
[2025-02-01] MEDS: ONDANSETRON HCL/PF - ER 4 MG/2 ML VIAL IV ONE ×2 (06:00→08:56)
[2025-02-01] MEDS: POTASSIUM CL. PREMIX PERIPHER. 50 ML IV SCH (06:00)
[2025-02-01] MEDS: POTASSIUM CHLORIDE 20 MEQ TAB.PRT.SR PO ONE (06:00)
[2025-02-01] MEDS: MORPHINE SULFATE INJ 2 MG/ML DISP.SYRIN IV ONE ×2 (06:00→08:56)
[2025-02-01 06:01] LABS: BACTERIA,URINE Moderate /HPF (None Seen)
[2025-02-01] MEDS ORDERED: MORPHINE SULFATE INJ 2 MG/ML DISP.SYRIN ONE (06:02)
[2025-02-01] MEDS ORDERED: PANTOPRAZOLE 40 MG VIAL ONE (06:02)
[2025-02-01] MEDS ORDERED: ONDANSETRON HCL/PF 4 MG/2 ML VIAL ONE ×2 (06:02→08:48)
[2025-02-01 06:07] LABS: AMPHETAMINE, URINE NEGATIVE (NEGATIVE); BARBITURATE, URINE NEGATIVE (NEGATIVE); BENZODIAZEPINE, URINE NEGATIVE (NEGATIVE); CANNABINOID, URINE NEGATIVE (NEGATIVE); COCCAINE, URINE NEGATIVE (NEGATIVE); OPIATE, URINE NEGATIVE (NEGATIVE); PHENCYCLIDINE SCREEN,URINE NEGATIVE (NEGATIVE)
[2025-02-01] MEDS ORDERED: ONDA4TAB5 PO (06:08)
[2025-02-01] MEDS ORDERED: PANT20TA2 PO (06:08)
[2025-02-01] MEDS ORDERED: CLONIDINE HCL 0.1 MG TABLET ONE (06:18)
[2025-02-01] MEDS: CLONIDINE HCL 0.1 MG TABLET PO ONE (06:30)
[2025-02-01] MEDS ORDERED: NAPR-1009 PO (08:43)
[2025-02-01] MEDS ORDERED: MORPHINE SULFATE INJ 4 MG/ML DISP.SYRIN ONE (08:48)
[2025-02-01] MEDS: IV NS 0.9% 1,000 ML BAG IV ONE (08:55)
[2025-02-01 09:36] VITALS: BP 159/100; TEMP 98.5; O2SAT 99
== END 2025-02-01 09:37 | disposition home or self-care (01) ==
LOC: ER 02:20
DX: R10.13 Epigastric pain (principal); R11.2 Nausea with vomiting, unspecified; I10 Essential (primary) hypertension; E78.5 Hyperlipidemia, unspecified; R10.84 Generalized abdominal pain; K74.60 Unspecified cirrhosis of liver; K76.0 Fatty (change of) liver, not elsewhere classified; F17.200 Nicotine dependence, unspecified, uncomplicated; Z91.048 Other nonmedicinal substance allergy status; Z87.19 Personal history of other diseases of the digestive system; Z90.49 Acquired absence of other specified parts of digestive tract; Z79.899 Other long term (current) drug therapy
CPT/HCPCS: 99285; 96374; 96361; 96375; 96376; 74177; 85025; 87086; 83690; 83735; 81001; 36415; 80053; 80320; 80307; J2270 ×2; J1885; J2405 ×4; J7030; J7050; J2470; J3480; A4223; Q9967; G0480